=== PATIENT | female | born 1940 | race Caucasian/White ===

== ENCOUNTER 2023-11-05 15:15 | Outpatient (RCR) | payer OTHER, SELFPAY | END 2023-11-21 11:24 | disposition home or self-care (01) | PROVIDERS: PCP Internal Medicine; Visit Provider Internal Medicine | DX: R53.81 Other malaise (principal); R26.9 Unspecified abnormalities of gait and mobility; M25.551 Pain in right hip; R26.81 Unsteadiness on feet; R53.1 Weakness; Z51.89 Encounter for other specified aftercare | CPT/HCPCS: 97110; 97112; 97140; 97162 ==

== ENCOUNTER 2024-10-06 14:00 | Outpatient (RCR) | payer OTHER, SELFPAY ==
--- NOTE | 2024-06-23 11:25 | PT.OPEX ---
PT [facility] Outpatient Eval PT [facility] Outpatient Eval Start: 06/10/24 11:27 Freq: Status: Active Protocol: Document 06/23/24 07:10 MLS (Rec: 06/23/24 11:24 MLS [id number]) E-signed By Isi England DPT Physical Therapy Outpatient Evaluation Insurance Information Recert Due Date 09/20/24 Insurance Name Medicare B,zach Medical Diagnosis M25.579 pain in unspecified ankle and joints of unspecified foot G89.29 other chronic pain M54.9 dorsalgia Treating Diagnosis LBP Referring MD Ambar Rocha, SHAR Subjective Subjective Patient is a 84 year old female who presents to physical therapy with signs and symptoms consistent with low back pain. She states that she had a bad fall on February 04 and she hurt her left ankle and knee. She states that then she tripped walking on linoleum to the carpet. She states that then she had another fall while she was carrying her groceries. She states that her right foot caught in the grocery bag and she hurt her ankle again, left arm and low back. She did go the ER and they did xrays which came back negative. She states that she went to urgent care last week for her ankle again. She states that the physician called her back and said maybe she does have a fracture in her ankle. She does wear supportive wraps on both of her ankles. She states that she went in last to get a boot on and it really messed up her walking. She states that it really flared up her low back. She reports that she has pain in both of her ankles and her low back. She states that she is going to her orthopedist today regarding her ankles. She would like to focus on her low back and not do anything with her ankles until she gets a plan with her orthopedist. She states that she is having pain in her mid -back, right where her bra strap is located. She reports pain in her right low back and hip as well. She is having a hard time sleeping because she can't get comfortable. She states that she does not have any numbness or tingling in her back. Aggravating factors include: sleeping, walking, standing, exercising. Alleviating factors include: nothing. Significant past medical history includes hypertension (controlled), previous cancer (November), respiratory problems (mild COPD), arthritis. Patient would like to achieve less pain through physical therapy sessions. Pain Comments Today: 2/10 on a 0-10 pain scale with 10 = extreme pain At its worst: 8/10 At its best: 2/10 Current Work Status Retired Objective Other/Pertinent Objective Posture Assessment: Kyphotic posture, forward head, rounded shoulders LUMBAR ROM Flexion: to mid-bennett repeated flexion: no increase in pain Extension: mod decreased with pain repeated ext: pain Right Sidebend: mid thigh with pain Left Sidebend: mid thigh with pain Right Rotation: WNL with min pain Left Rotation: WNL LE MMT Hip flexion: R 4-/5 L 4-/5 Hip Extension: R 4-/5 L 4-/5 Hip abduction: R 3+/5 L3+/5 Knee extension: R 3/5 L 3-/5 Knee Flexion: R 4/5 L 4-/5 Dorsiflexion/heel walk: unable to perform secondary to ankles Plantarflexion/toe walk: unable to perform secondary to ankles JOINT MOBILITY/PALPATION Tenderness with palpation of bilateral ES, paraspinals, and right sided QL and multifidi SPECIAL TESTS -Quadrant test: positive on left -Single leg stance: unable to perform secondary to ankle pain -Slump test: negative B -Straight leg raise: pain on right -Crossed straight leg raise: pain on right SI/HIP -ESME: pain on right -FADIR: pain on right TX: Access Code: [email or web address] URL: [email or web address] Date: 06/23/2024 Prepared by: Isi England Exercises - Supine Lower Trunk Rotation - 1 x daily - 7 x weekly - 3 sets - 10 reps - Hooklying Single Knee to Chest Stretch - 1 x daily - 7 x weekly - 3 sets - 10 reps Functional Test Performed & Score 26/50 Modified Oswestry Low Back Pain Questionnaire Assessment Assessment/Impression Pt is a 84 year old female who presents with concerns of low back pain. Patient also has notable objective findings including limited ROM, tenderness to palpation, and decreased strength which are also likely contributing to the problem. Patient is a good candidate for skilled therapy to target deficits described above. Skilled PT intervention is necessary for use of therapeutic exercise manual therapy, neuromuscular re- education, gait training, and therapeutic activity. Functional impairments include difficulty with: standing, walking, exercising, sleeping, and ADLS. See appropriate sections of PT eval for complete list of goals and POC . D/C plan and criteria is for pt to achieve the goals as listed below or until max rehab potential is met. Pt was agreeable with plan of care and goals established. Primary Functional Limitations standing walking exercising ADLs sleeping Plan of Care Rehabilitation Potential Good Physical Therapy Goals Within 10-12 weeks: 1.Pt will demonstrate independence in performance of home exercise program with the use of video and/or handouts in order to optimize functional mobility and reduce risk for re-injury. 2.Pt will demonstrate consistent HEP compliance to ensure progress in reaching established goals during course of care. 3.Patient will be able to grocery shop for 20 minutes without pain. 4.Patient will report pain levels <2/10 with all activities in order to improve functional mobility at home, work and during functional leisure activities. 5.Patient is able to sleep without waking more than one time due to pain in a 6-8 hour time frame. 6.Patient will be able to walk up to one mile without pain. 7.Patient will be able to bend and lift household items from the floor to shoulder height to perform ADLs without pain. 8.Pt will be able to ascend/ descend 1 flight of stairs in order to perform ADLs pain free. 9.Pt will exhibit 5 pt improvement in Modified Oswestry Outcome measure to demonstrate functional improvement and progress towards goals Coordination/Communication With Referral Source Treatment Plan/Direct Interventions Joint Mobilization,Manual Therapy,Neuromuscular Re-ed, Therapeutic Activities, Therapeutic Exercises Patient Will Be Discharged From Therapy Independently Progressing Evaluation Billing Untimed Code Treatment Minutes 40 Complexity Low Certification Information Provider Signature Required Yes Provider Signature Shows Agreement With POC & Medical Necessity Physician NPI Number Write NPI# Here Physician Comment/Change : Physician Signature & Date Requested Please Sign/Date Here
--- NOTE | 2024-07-22 07:10 | PT.OPEX ---
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 Peraza Subjective Subjective Patient is a 84 year old female who presents to physical therapy with signs and symptoms consistent with left shoulder pain and bilateral knee pain. She states that her knee pain has caused her balance to get worse. She states that she had three falls between November and February. She reports that when she fell it hurt her shoulder and knees. She reports that she did have xrays on her shoulder which were negative. She reports that it hurts on the inside of both knees. No complaints of numbness or tingling into her arms and legs. Aggravating factors include: lifting, reaching, walking, squatting, standing. Alleviating factors include: nothing. Significant past medical history includes hypertension (controlled), previous cancer (November), respiratory problems (mild COPD), and arthritis. Patient would like to achieve less pain and better balance through physical therapy sessions. Pain Comments Today: 0/10 on a 0-10 pain scale with 10 = extreme pain At its worst: 5/10 At its best: 0/10 Current Work Status Retired Precautions Weight Bearing Status Full Weight Bearing Therapy Limitations/Systems Review Not Limited Objective Other/Pertinent Objective Posture Assessment: Kyphotic posture, forward head, rounded shoulders LE MMT Hip flexion: R 4-/5 L 4-/5 Hip Extension: R 4-/5 L 4-/5 Hip abduction: R 3+/5 L3+/5 Knee extension: R 3/5 L 3-/5 Knee Flexion: R 4/5 L 4-/5 heel walk: unable to perform secondary to ankle pain toe walk: unable to perform secondary to ankle pain SHOULDER AROM Flexion: R 140 L 135 Abduction: R 100 L 90 Internal Rotation: R 80 L 60 External Rotation: R 80 L 80 NECK/SHOULDER MMT: Shoulder flexion: R 4/5 L 4-/5 Shoulder abduction: R 4/5 L 4- /5 Shoulder External Rotation: R 4/5 L 4/5 Shoulder Internal Rotation: R 4/5 L 4/5 Elbow flexion: R 4/5 L 4/5 Elbow extension R 4/5 L 4/5 SPECIAL TEST -Spurlings Test: negative -Cervical distraction test: negative -Bakody Sign: negative Shoulder impingement -HawkinsvKennedy Test: negative -Neer Test: negative -Anahy Test: positive -Painful arc 60-120 scaption: painful arc Rotator cuff tendonitis -Speeds test: negative -Yergasons test: negative -Empty can(Supra): positive for pain -Lift off test (subscap): positive for pain Labral Tear/Instability -Biceps Load test: negative -Anterior Apprehension: negative -Obriens test: negative GAIT/FUNCTIONAL MOBILITY Single leg stance: no increase in pain Squat: pain in knees KNEE ROM Extension/Flexion: 0-130 B HIP ROM Flexion: 100 B Internal Rotation: 20 R. 23 L External Rotation: 30 B Abduction: 30 B SPECIAL TEST -Anterior drawer: negative B -Posterior Drawer: negative B -Valgus Test: negative B -Varus Test: negative B -Brooke test: negative B -hyper flexion test: negative B -Olsen Compression: negative B -Trochanteric Bursitis Test- Bursitis: negative B PALPATION Severe tenderness with palpation of medial joint lines in B knees TX: Access Code: [email or web address] URL: [email or web address] Date: 07/21/2024 Prepared by: Isi England Exercises - Tandem Stance - 2 x daily - 7 x weekly - 1 sets - 3 reps - 30 hold - Single Leg Stance - 2 x daily - 7 x weekly - 1 sets - 3 reps - 30 hold - Single Leg Stance on Foam Pad - 2 x daily - 7 x weekly - 1 sets - 3 reps - 30 hold - Tandem Walking - 1 x daily - 7 x weekly - 3 sets - 10 reps - Sideways Walking - 1 x daily - 7 x weekly - 3 sets - 10 reps - Heel Raises with Counter Support - 1 x daily - 7 x weekly - 3 sets - 10 reps - Mini Squat with Counter Support - 1 x daily - 7 x weekly - 3 sets - 10 reps Assessment Assessment/Impression Pt is a 84 year old female who presents with concerns of left shoulder pain, bilateral knee pain and a history of falls. Patient also has notable objective findings including limited ROM, tenderness to palpation, and decreased strength which are also likely contributing to the problem. Patient is a good candidate for skilled therapy to target deficits described above. Skilled PT intervention is necessary for use of therapeutic exercise manual therapy, neuromuscular re- education, gait training, and therapeutic activity. Functional impairments include difficulty with: standing, walking, exercising, ADLs. See appropriate sections of PT eval for complete list of goals and POC. D/C plan and criteria is for pt to achieve the goals as listed below or until max rehab potential is met. Pt was agreeable with plan of care and goals established. Primary Functional Limitations standing walking exercising ADLs Plan of Care Rehabilitation Potential Good Physical Therapy Goals Within 10-12 weeks: 1.Pt will demonstrate independence in performance of home exercise program with the use of video and/or handouts in order to optimize functional mobility and reduce risk for re-injury. 2.Pt will demonstrate consistent HEP compliance to ensure progress in reaching established goals during course of care. 3.Patient will report no falls . 4.Patient will report pain levels <2/10 with all activities in order to improve functional mobility at home, work and during functional leisure activities. 5.Patient will be able to move from sit to stand without pain. 6.Pt will be able to reach overhead into her cupboards without pain. 7.Pt will exhibit 5 pt improvement in LEFS and Quickdash measures to demonstrate functional improvement and progress towards goals Coordination/Communication With Referral Source Treatment Plan/Direct Interventions Joint Mobilization,Manual Therapy,Neuromuscular Re-ed, Therapeutic Activities, Therapeutic Exercises Patient Will Be Discharged From Therapy Independently Progressing Evaluation Billing Untimed Code Treatment Minutes 30 Complexity Low Certification Information Provider Signature Required Yes Provider Signature Shows Agreement With POC & Medical Necessity Physician NPI Number Write NPI# Here Physician Comment/Change : Physician Signature & Date Requested Please Sign/Date Here
== END 2024-11-09 08:39 | disposition home or self-care (01) ==
PROVIDERS: PCP Internal Medicine; Visit Provider Nurse Practitioner
DX: M25.562 Pain in left knee (principal); M25.561 Pain in right knee; M67.912 Unspecified disorder of synovium and tendon, left shoulder; M25.579 Pain in unspecified ankle and joints of unspecified foot; G89.29 Other chronic pain; M54.9 Dorsalgia, unspecified; Z51.89 Encounter for other specified aftercare
CPT/HCPCS: 97110; 97140; 97161

== ENCOUNTER 2024-10-27 10:59 | Emergency (ER) | payer OTHER, SELFPAY ==
--- OUTSIDE RECORDS SUMMARY | 2024-10-27 11:02 | XMS_ITS | Clinical Summary ---
Author Organization [employer] [facility] & [facility] Address [place], [place] [address] Care Team Providers Care Software Product Specialist Name Role Phone Ruth Collins MD Primary Care Provider Allergies Active Allergy Reactions Criticality Noted Date Comments Clindamycin Rash 07/18/2018 Lactose Other - Describe In Comment Field 12/19/2020 Levofloxacin Arthralgia 09/11/2017 Does not want to take any fluoroquinilones. Bursitis in shoulders that took 6 months to get rid of Penicillins *Unknown 09/11/2017 Has received amoxil and Augmentin without reactions. Wheat Other - Describe In Comment Field 12/19/2020 Medications medication order composer VIT A VIT D3 Co-Q 10 VIT B12 0 1 Active carboxymethylce -glycern-poly80 0.5-1-0.5 % ophthalmic solution INSTILL 1 DROP INTO BOTH EYES THREE TIMES A DAY NEEDED FOR DRY EYES. 1 Active diclofenac topical (VOLTAREN) 1 % gel Apply 2 g topically to affected area(s). 1 Active glucosamine-D3- hyaluronic acid 1,000 mg- 25 mcg-1.65 mg tab Take by mouth. 0 1 Active Active Problems No known active problems Social History Tobacco Use Types Packs/Day Years Used Date Smoking Tobacco: Former Smokeless Tobacco: Never Tobacco Cessation:Counseling Given: Yes Alcohol Use Standard Drinks/Week Comments Yes 0 (1 standard drink = 0.6 oz pur e alcohol) Social Connections Answer Date Recorded Frequency of Communication with Friends and Fami ly Not on file 09/23/2021 Financial Resource Strain Answer Date R ecorded Difficulty of Paying Living Expenses Not on file 09/23/2021 Difficulty of Paying Living Expenses Not on file 09/23/2021 Comments No Sex and Gender Information Value Date Recorded Sex Assigned at Not on file Legal Sex Female 3:27 PM [employer] Gender Identity Not on file Sexual Orientation Not on file Obstetrics History Last Filed Vital Signs Vital Sign Reading Time Taken Comments Blood Pressure 140/78 04/15/2021 4:47 PM CDT Pulse 68 04/15/2021 4:47 PM CDT Temperature 37.3 C (99.1 F) 04/15/2021 4:47 PM CDT Respiratory Rate 16 04/15/2021 4:47 PM CDT Oxygen Saturation 96% 04/15/2021 4:47 PM CDT Inhaled Oxygen Concentration - - Weight 52.3 kg (115 lb 6.4 oz) 04/15/2021 4:47 P M CDT Height - - Body Mass Index - - Plan of Treatment Health Maintenance Due Date Last Done Comments Tdap 1952 Depression screening for age 12+ 1953 BMI (ht and wt on same day) for age 18+ 1959 Tetanus booster 1961 Pneumococcal series for age 50+ (1 of 1 - PCV) 1991 Zoster (shingles) series for age 50+ (1 of 2) 1991 DEXA/DXA scan for age 65+ 2006 Medicare Wellness for age 65+ 2006 RSV vaccine for adults or pr egnancy (1 - 1-dose 75+ series) 2016 COVID-19 vaccine series ( season) 2024 08/14/2021, 01/18/2021, 12/21/2020 Influenza for age 65+ 05/24/2024 Care Teams Software Product Specialist Relationship Specialty Start Date End Date Ruth Collins MD PCP - General Preventive Medicine 07/12/21
--- OUTSIDE RECORDS SUMMARY | 2024-10-27 11:02 | XMS_ITS | Clinical Summary ---
Author Organization [facility] Address [address] [place] [address] Care Team Providers Care Installation And Repair Technician Name Role Phone Magy Dorantes P.A.-C. Primary Care Pro vider Source Comments Patient records contain information from all sites at [facility]. For routine questions regarding patient records, call [phone] during business hours, M-F 8:00 AM - 5:00 PM Central Time. Record requests for emergency care only can be directed to [phone] at any time.[facility] Allergies Active Allergy Reactions Criticality Noted Date Comments Clindamycin Rash Low 07/18/2018 Lactose GI intolerance Medium 12/19/2020 Levofloxacin Other (see comments) Medium 09/11/2017 patient does not want to take any Fluoroquinolones. Bursitis in shoulders that took 6 months to get rid of - Neomycin Rash Medium 11/21/2021 (eye ointment) - Penicillins GI intolerance Medium 09/11/2017 Wheat Other (see comments) Low 12/19/2020 sensitivity not an actual allergy - Medications TURMERIC ORAL Take 482 mg by mouth daily. Cyndie Tumeric [place] Extra Strength Proprietary Blend 482 mg capsule. Tumeric and Black Pepper extracts. 1 capsule per day. Active UNABLE TO FIND as needed. Advanced Proboitic Ultra Potency Formula 1 capsule oral daily Active selenium [address] tablet Take 2 tablets (400 mcg total) by mouth daily. 60 tablet 11 07/21/20 18 Active Additional Information Patient taking differently:400 mcg oralAs needed, Informant: Self, Reported on 10/15/2024 UNABLE TO FIND Nature's Way Joint Movement Extra Strength - Glucosamine 2000 mg, MSM 500 mg, chondroitin 1200 mg, VitD3 400 IU. Liquid formula daily. Active vitamin E 200 Unit capsule Take 200 Units by mouth 3 (three) times a day. Patient takes medication 2-3 times a week Active zinc gluconate 50 mg tablet Take 50 mg by mouth daily with breakfast. Active ascorbic yesf-zdzbawyc-w in (Emergen-C) 1,000 mg powder effervescent in packet Take 1 packet by mouth as needed. Active VITAMIN A ORAL Take 2 tablets by mouth daily. 25,000 IU capsules. Active UNABLE TO FIND as needed. Med Name: Ashwaganda 1300 mg one daily with 10 mg organic black pepper. Active phytonadione, vit K1, (phytonadione, vitamin K1,) 100 mcg tablet Take 100 mcg by mouth daily. Active lutein-zeaxanth in 25-5 mg capsule Take 1 capsule by mouth daily. Active UNABLE TO FIND Collagen Peptides one scoop a day Active aspirin 81 mg chewable tablet Chew 243 mg every 6 (six) hours as needed for pain. Active vitamin K2 40 mcg tablet Take by mouth. Acti ve cholecalciferol (Vitamin D3) 125 mcg (5,000 Unit) capsule Take 125 mcg by mouth as needed. Active coenzyme Q10 300 mg capsule Take 1 capsule by mouth as needed. Active cyanocobalamin, vitamin B-12, (VITAMIN B-12 ORAL) Take 5,000 mcg by mouth as needed. Active coenzyme Q10 300 mg capsule Take 300 mg by mouth daily. 025 Discontinued cyanocobalamin, vitamin B-12, 5,000 mcg capsule Take 2,500 mcg by mouth 2 (two) times a day. 025 Discontinued IODINE ORAL Take 2 drops by mouth once a week. Patient is taking two drops once a week 025 Discontinued cholecalciferol (VITAMIN D3) 125 mcg (5,000 Unit) capsule Take 5,000 Units by mouth 2 (two) times a day. 025 Discontinued Active Problems Patient Care Coordination No te Formatting of this note migh t be different from the original. Spouse: no Children: Fabio Mera, 4 grandkids Work: no Refused SUHAS Problem Noted Date Diagnosed Date Hypertension White [place] 07/15/2024 Infrarenal Abdominal Aortic Aneurysm Without Rup ture 06/25/2022 Overview (07/10/2022): CT shows Infrarenal abdominal aortic ectasia with diameter 2.7 cm. 06/2022 surveillance ultrasound shows Ectatic distal infrarenal aorta up to 2.5 cm. Repeat ultrasound in 3-5 years for surveillance. Blood pressure goal <130/80 mm Hg, patient reports home bps in the target range LDL cholesterol <70 mg/dL, patient defers statin Other Emphysema 12/07/2021 Overview (12/07/2021): Mild/moderate emphysema demonstrated on CT scan of chest from Jul 2021 Stroke Cerebrovascular Accident Personal History 07/21/2021 Overview (08/12/2021): Incidental finding of age indeterminate stroke involving right caudate head on 06/2021 CT neck. Follow up CT head showed features suggesting this was a subacute stroke when captured on 07/13, and now has evolved and contracted to a more chronic appearance. This occurred while on aspirin therapy. 07/2021 carotid ultrasound normal. 08/10/21 Focus on risk factor modification. She defers lifelong statin therapy. She is open to dietary and supplement options to lower cholesterol. Home SBPs are 110s-130s. Neurovascular e-consult RE: need to replace aspirin with clopidogrel, need for any further eval (is a DAX, MRI or holter monitor warranted?). Handout on alternative medicine options for lower cholesterol provided Recommend psyllium fiber for constipation and cholesterol Repeat lipids in 3-6 months Track home bps and bring bp cuff to next visit Nodule Thyroid Nontoxic 07/18/2018 Overview (07/09/2022): Thyroid ultrasound done on 11/04/2017, 06/2021, 06/2022 show 0.8cm stable right thyroid nodule with low risk features. No further imaging follow up needed. Assessment & Plan (06/25/2022 4:22 PM CDT): Repeat ultrasound for surveillance. Adults require Iodine 150mcg daily. Assessment & Plan (12/19/2020 11:54 AM CDT): Asymptomatic. Repeat Ultrasound for surveillance Hyperlipidemia 02/05/2018 Overview (03/13/2022): She defers lifelong statin therapy. She is open to dietary and supplement options to lower cholesterol. Lab Results Component Value Date LDLCALC 136 (H) 12/19/2020 Assessment & Plan (12/19/2020 11:54 AM CDT): LDL <130, no CAD. Continue lifestyle modification. Cancer Breast Personal History Overview (07/17/2024): She has history of breast cancer and left mastectomy in 1980, and she reports chemotherapy for five months. She is not interested in doing mammogram and has not had a mammogram for years. Assessment & Plan (12/19/2020 11:54 AM CDT): She would be open to a breast MRI if recommended. I will check with our [facility]. Insomnia Resolved Problems Problem Noted Date Diagnosed Date Resolved Date Parasitic Disease 06/25/2022 07/10/2022 Pain Generalized Abdominal 08/12/2021 1 Overview (08/12/2021): Treated at [facility] on 11/15/20 for diverticulitis. Current symptoms may relate to constipation or to irritable bowel syndrome, constipation type. No signs of symptoms at this time of recurrent diverticulitis. Constipation 01/05/2021 06/25/2022 Overview (08/12/2021): Fatigue 01/05/2021 06/12/2023 Overview (07/10/2022): Listlessness, depression, sleep disturbance (too much and too little sleep), forgetfulness, easy distractibility/difficulty sustaining attention, hair loss, dry skin, brittle nails, cold intolerance, joint aches and pains and constipation, hoarseness, fatigue, dry eyes. These symptoms improve with taking an Iodine supplement (Lugol's 5 drops in juice daily. No headaches. She reports blurry vision. No nipple discharge or secretion. Assessment & Plan (07/10/2022 4:26 PM CDT): She has symptoms of hypothyroidism which improved/resolve with iodine supplementation. High dose iodine can cause hyperthyroidism, and she may be experiencing an increase in thyroid levels after taking iodine. Previous TSH has been as low as 0.6 and as high as 1.7. No history of GRAVES. She has mildly elevated TTG antibodies. T3, T4 in normal range. --stop iodine supplementation --to avoid iodine deficiency, take multivitamin with Potassium Iodine 150mcg daily --replace Himalayan pink salt with sea salt to minimize lithium (reports presence of naturally occurring lithium in pink salt from certain regions) --repeat TSH/T4 when symptoms recur or in 3 months (iodine supplementation can affect thyroid production for months) --as requested, refer to endocrinology to help establish whether hypothyroidism is present/causing her symptoms. --morning cortisol with next labs to screen for adrenal insufficiency (less likely given high blood pressures in clinic) PreDiabetes 12/19/2020 06/12/2023 Pain Wrist Left 07/20/2018 12/19/2020 Dysfunction Diastolic 07/18/20182020 Hypertension Essential Primary 07/18/2018 12/19/2020 Primary Osteoarthritis Wrist Left 10/01/2017 12/19/2020 Pain Back Lumbar 10/01/2017 12/19/2020 Coronary Artery Disease With Stable Angina 09/12/2017 12/19/2020 Overview (07/18/2018): She had negative stress echo on 03/18/2018. Adjustment Disorder 09/12/2017 12/20/19 21 Presyncope 09/12/2017 12/19/2020 Dyspnea On Exertion 12/20/19 21 Rheumatic Fever Without Heart Involvement 12/19/2020 Encounters Date Type Department Care Team Description 10/16/2024 10:00 AM TRAINMASTER Comprehensive Visit Division of Endocrinology in [place], [place] [address] [place] [address] Magy Dorantes MPAS, P.A.-Enoc Hay M.D. Nodule Thyroid Nontoxic 10/15/2024 11:11 AM TRAINMASTER - 10/15/2024 11:59 PM TRAINMASTER Hospital Encounter Department of Laboratory Medicine in [address] [phone] Magy Dorantes MPAS, P.A.-C. Nodule Thyroid Nontoxic Discharge Disposition: Home or Self Care 10/15/2024 9:15 AM TRAINMASTER Clinical Communication Virtual Review in [address] [phone] Pre-visit Intake 09/11/2024 Clinical Communication Department of Community Internal Medicine in [address] [phone] Magy Dorantes MPAS, Tereza.A.-C. Referral 08/13/2024 1:25 PM TRAINMASTER Ancillary Procedure Department of Family Medicine 08/13/2024 1:00 PM TRAINMASTER Office Visit Department of Community Internal Medicine in [address] [phone] Magy Dorantes MPAS, Tereza.A.-C. Stroke Cerebrovascular Accident Personal History (Primary Dx); Hyperlipidemia; Nodule Thyroid Nontoxic; Rash 08/06/2024 10:38 AM TRAINMASTER - 08/06/2024 11:59 PM TRAINMASTER Hospital Encounter Department of Laboratory Medicine in [address] [phone] Magy Dorantes MPAS, P.A.-C. Hyperlipidemia; Maintenance Health Adult Discharge Disposition: Home or Self Care 08/06/2024 10:10 AM TRAINMASTER - 08/06/2024 10:37 AM TRAINMASTER Hospital Encounter Department of Radiology in [address] [phone] Magy Dorantes MPAS, P.A.-C. Lymphadenopathy Discharge Disposition: Home or Self Care from Last 3 Months Immunizations Immunization Administration Dates Next Due Influenza, Unspecified 08/27/2023(Deferr ed: Other),12/19/2020(Deferred: Other) PPSV23 06/12/2023(Deferred: Other),12/19/2020(Deferred: Other) RZV (SHINGRIX) 06/12/2023(Deferred: Patient Ref used) SARS-COV-2 (COVID-19) - MODERNA(Discontinued) 12/21/2020 Td (Adult), adsorbed 07/21/2021(Deferred: Other) Tdap 06/12/2023(Deferred: Patient Ref used) Zoster, Unspecified 07/21/2021(Deferred: Other) Family History Medical History Relation Name Comments Cataracts Brother Breast cancer Daughter Ovarian cancer Daughter Cancer Father Cataracts Father Heart disease Father Macular degeneration Father Blindness Father's Brother Retinal detachment Father's Brother Cataracts Mother Coronary artery disease Mother Glaucoma Mother Hypertension Mother Stroke Mother Cataracts Sister Hypertension Sister Strabismus Neg Hx Relation Name Status Comments Brother Daughter Father Father's Brother Mother Sister Social History Tobacco Use Types Packs/Day Years Used Date Smoking Tobacco: Former Cigarettes Smokeless Tobacco: Never Tobacco Cessation:Counseling Given: Not Answered Comments:quit in 1998 - Alcohol Use Standard Drinks/Week Comments Yes 0 (1 standard drink = 0.6 oz pur e alcohol) occassionally AUDIT-C Answer Date Recorded Frequency of Alcohol Consumption Monthly or less 05/12/2019 Average Number of Drinks Patient declined 2018 Frequency of Binge Drinking Patient declined Overall Financial Resource Strain (CARDIA) Answe r Date Recorded Difficulty of Paying Living Expenses Very hard 05/12/2019 PHQ-2 Answer Date Recorded PHQ-2 Score 0 03/20/2022 Nutrition Answer Date Recorded Nutrition: EVOO Fat Source 13 04/19 Nutrition: Servings of Fruits/Vegetables per Day Not on file 04/19/2020 Dental Answer Date Recorded Dental: Regular Dentist Unknown 11/14/19 Education Answer Date Recorded What is the highest level of school you have completed or the highest degree you have received? Some college, no degree 05/12/2019 Comments No Sex and Gender Information Value Date Recorded Sex Assigned at Not on file Legal Sex Female 1:42 PM TRAINMASTER Gender Identity Not on file Sexual Orientation Not on file Last Filed Vital Signs Vital Sign Reading Time Taken Comments Blood Pressure 135/80 10/16/2024 10:09 AM TRAINMASTER Patient stated took it at home last night 10/15/24 Pulse 75 08/13/2024 12:48 PM TRAINMASTER Temperature 35.8 C (96.4 F) 08/13/2024 12:48 PM TRAINMASTER Respiratory Rate 16 08/13/2024 12:4 8 PM TRAINMASTER Oxygen Saturation 90% 08/21/2023 3:4 5 PM TRAINMASTER Inhaled Oxygen Concentration - - Weight 50.5 kg (111 lb 5.3 oz) 10/16/2024 10:09 AM TRAINMASTER Height 156.1 cm (5' 1.46) 10/16/2024 1 0:09 AM TRAINMASTER Body Mass Index 20.72 10/16/2024 10:09 AM TRAINMASTER Plan of Treatment Health Maintenance Due Date Last Done Comments Visit: Medicare Annual Wellness 1940 DTaP,Tdap,and Td Vaccines (1 - Tdap) 1960 Pneumococcal vaccine (50+ years) (1 of 2 - PCV) 1960 Zoster Vaccines (1 of 2) 1991 RSV vaccine - (32-36 weeks) or 60+ years (1 - 1-dose 75+ series) 2016 COVID-19 Vaccine ( season) 2024 08/09/2023, 07/25/2022, 01/11/2022, Additional history exists Influenza Vaccine (#1) 2024 Depression Screening (Annual PHQ-2) 09/23/2024 Fall Risk Screen (Annual) 09/23/2024 Visit: Chronic Disease, age 18+ 07/15/2025 07/15/2024 Office Visit for Blood Pressure Check / Re-check 10/16/2025 10/16/2024 IPV Vaccines Aged Out No longer eligi ble based on patient's age to complete this topic Medical Devices Implanted Type Area Boat Patcher Plastic Device Identifier Shelf Expiration Date Model / Serial / Lot Staple-Left Shoulder-1980 Implanted:09/1980 (Quantity not on file) Misc Other Left: Shoulder Procedures Procedure Name Priority Date/Time Associated Diagnosis Comments THYROID-STIMULATI NG HORMONE-SENSITIVE (S-TSH) Routine 10/15/2024 11:23 AM TRAINMASTER Nodule Thyroid Nontoxic T4 (THYROXINE), FREE, S Routine 10/15/2024 11:23 AM TRAINMASTER Nodule Thyroid Nontoxic FAMILY MEDICINE IMAGE EXAM Routine 08/13/2024 1:25 PM TRAINMASTER THYROID FUNCTION CASCADE, S Routine 08/06/2024 10:46 AM TRAINMASTER Maintenance Health Adult VITAMIN B12 ASSAY, S Routine 08/06/2024 10:46 AM TRAINMASTER Maintenance Health Adult VITAMIN D, IMMUNOASSAY, TOTAL, S Routine 08/06/2024 10:46 AM TRAINMASTER Maintenance Health Adult GLUCOSE, FASTING, S/P Routine 08/06/2024 10:46 AM TRAINMASTER Maintenance Health Adult BASIC METABOLIC PANEL, S/P Routine 08/06/2024 10:46 AM TRAINMASTER Maintenance Health Adult LIPID PANEL, S Routine 08/06/2024 10:46 AM TRAINMASTER Hyperlipidemia US HEAD NECK SOFT TISSUE RAD - Routine (most inpatients and all outpatients) 08/06/2024 10:36 AM TRAINMASTER Lymphadenopathy from Last 3 Months Results * S-TSH (Thyroid-Stimulating Hormone - Sensitive) (10/15/2024 11:23 AM TRAINMASTER) TSH, Sensitive 1.4 0.3 - 4.2 mIU/L 10/15/2024 1:46 PM TRAINMASTER OWAT Blood (Blood, Venous) 10/15/2024 11:23 AM TRAINMASTER 10/15/2024 12:48 PM TRAINMASTER us Magy Dorantes MPAS, P.A.-C. LAB BLOOD ADD-ON Final Result [facility] [address] [place] [address], [place] OW[place] [facility] [place] [address] [place] [address] * T4 (Thyroxine), Free (10/15/2024 11:23 AM TRAINMASTER) T4 (Thyroxine), Free, P 1.3 0.9 - 1.7 ng/dL 10/15/2024 1:46 PM TRAINMASTER OWAT Blood (Blood, Venous) 10/15/2024 11:23 AM TRAINMASTER 10/15/2024 12:48 PM TRAINMASTER us Magy CONRAD, P.A.-C. LAB BLOOD ADD-ON Final Result [facility] [address] [place] [address], [place] [facility] [facility] [place] [address] [place] [address] * Arm-Family Medicine Image Exam (08/13/2024 1:25 PM TRAINMASTER) 08/13/2024 1:23 PM TRAINMASTER Narrative [facility] - 08/13/2024 1:25 PM TRAINMASTER This order has been created and auto-finalized to support the import of images acquired without order. The clinical documentation to support these images can be found on the encounter that produced images. us Provider Not In System IMG NON RAD IMAGING PROCE DURES Final Result [facility] NA * (ABNORMAL) Lipid Panel (08/06/2024 10:46 AM TRAINMASTER) Triglycerides 70 mg/dL 08/06/2024 1:21 PM TRAINMASTER OWAT Comment: ----REFERENCE VALUE---- Normal: <150 mg/dL Borderline High: 150-199 mg/dL High: 200-499 mg/dL Very High: > or =500 mg/dL Cholesterol, Total 223(H) mg/dL 2023 1:21 PM TRAINMASTER OWAT Comment: ----REFERENCE VALUE---- Desirable: < 200 mg/dL Borderline High: 200 - 239 mg/dL High: > or = 240 mg/dL Cholesterol, LDL, Calculated 117 mg/dL 08/06/2024 1:21 PM TRAINMASTER OWAT Comment: ----REFERENCE VALUE---- Desirable: <100 mg/dL Above Desirable: 100-129 mg/dL Borderline High: 130-159 mg/dL High: 160-189 mg/dL Very High: >=190 mg/dL ----ADDITIONAL INFORMATION---- LDL cholesterol calculated using the Gardner/NIH equation. Cholesterol, HDL 94 >=50 mg/dL 08/06/20 1:21 PM TRAINMASTER OWAT Cholesterol, Non-HDL, Calculated 129 mg/dL 08/06/2024 1:21 PM TRAINMASTER OWAT Comment: ----REFERENCE VALUE---- Desirable: <130 mg/dL Above Desirable: 130-159 mg/dL Borderline High: 160-189 mg/dL High: 190-219 mg/dL Very High: > or =220 mg/dL Fasting (8 HR or more) Yes 08/06/2024 10:46 AM TRAINMASTER OWAT Blood (Blood, Venous) 08/06/2024 10:46 AM TRAINMASTER 08/06/2024 12:47 PM TRAINMASTER Magy CONRAD, P.A.-C. LAB BLOOD ADD-ON Final Result Performing Organization Address City/[facility]/ZIP Co de Phone Number [facility] [address] [place] [address], [facility] [address] [facility] [place] [address] [place] [address] * Vitamin D, Immunoassay, Total, Serum (08/06/2024 10:46 AM TRAINMASTER) Vitamin D, Immunoassay, Total, S 29 20 - 80 ng/mL 08/06/2024 7:44 PM TRAINMASTER MKTO Comment: Optimum levels within the healthy population are 20-50, patients with bone disease may benefit from high levels within this range Blood (Blood, Venous) 08/06/2024 10:46 AM TRAINMASTER 08/06/2024 7:01 PM TRAINMASTER us Magy CONRAD, P.A.-C. LAB BLOOD ADD-ON Final Result Performing Organization Address City/[facility]/ZIP Co de Phone Number [facility] [address] [place] [address], [facility] MKTO [facility] [place] [address] [place] [address] * Thyroid Function [place] (08/06/2024 10:46 AM TRAINMASTER) TSH, Sensitive 1.3 0.3 - 4.2 mIU/L 08/06/2024 1:25 PM TRAINMASTER OWAT Blood (Blood, Venous) 08/06/2024 10:46 AM TRAINMASTER 08/06/2024 12:47 PM TRAINMASTER Magy CONRAD, P.A.-C. LAB BLOOD ADD-ON Final Result Performing Organization Address City/[facility]/ZIP Co de Phone Number [facility] [address], [place] [address], [facility] [facility] [place] [address] [place] [address] * Glucose, Fasting (08/06/2024 10:46 AM TRAINMASTER) Glucose, P 88 70 - 100 mg/dL 08/06/2024 1:39 PM TRAINMASTER OWAT Last Intake 12 hr 08/06/2024 12:45 PM TRAINMASTER OWAT Blood (Blood, Venous) 08/06/2024 10:46 AM TRAINMASTER 08/06/2024 12:45 PM TRAINMASTER Magy CONRAD, P.A.-C. LAB BLOOD NON ADD -ON Final Result [facility] [address] [place] [address], [facility] [facility] [place] [address] [place] [address] * Vitamin B12 Assay (08/06/2024 10:46 AM TRAINMASTER) Vitamin B12 Assay, S 991 232 - 1245 ng/L 08/06/2024 4:21 PM TRAINMASTER AUST Comment: Biotin has been identified by the vending technician as a potential interfering substance. Higher concentrations of biotin may be found in multivitamins, hair/nail supplements, and workout supplements. If the result does not match clinical observations, repeat testing after patient refrains from the use of supplements for at least 12 hours. Blood (Blood, Venous) 08/06/2024 10:46 AM TRAINMASTER 08/06/2024 3:29 PM TRAINMASTER Magy CONRAD, P.A.-C. LAB BLOOD ADD-ON Final Result [facility] [address] [place] [address], [facility] - [facility] [address] [place] [address] * Basic Metabolic Panel (08/06/2024 10:46 AM TRAINMASTER) Potassium, P 3.7 3.6 - 5.2 mmol/L 08/06/2024 1:21 PM TRAINMASTER OWAT Sodium, P 137 135 - 145 mmol/L 08/06/2024 1:21 PM TRAINMASTER OWAT Chloride, P 100 98 - 107 mmol/L 08/06/2024 1:21 PM TRAINMASTER OWAT Bicarbonate, P 28 22 - 29 mmol/L 08/06/2024 1:21 PM TRAINMASTER OWAT Anion Gap, P 9 7 - 15 08/06/2024 1:21 PM TRAINMASTER OWAT BUN (Blood Urea Nitrogen), P 17 6 - 21 mg/dL 08/06/2024 1:21 PM TRAINMASTER OWAT Creatinine 0.68 0.59 - 1.04 mg/dL 08/06/2024 1:21 PM TRAINMASTER OWAT Estimated GFR (eGFR) 86 >=60 mL/min/BSA 08/06/2024 1:21 PM TRAINMASTER OWAT Comment: Estimated GFR calculated using the 2020 CKD_EPI creatinine equation. Calcium, Total, P 8.9 8.8 - 10.2 mg/dL 08/06/2024 1:21 PM TRAINMASTER OWAT Glucose, P CANCELED mg/dL 08/06/2024 12:48 PM TRAINMASTER OWAT Comment: Duplicate test request. Result canceled by the ancillary. Blood (Blood, Venous) 08/06/2024 10:46 AM TRAINMASTER 08/06/2024 12:47 PM TRAINMASTER us Magy CONRAD P.A.-C. LAB BLOOD ADD-ON Final Result [facility] [address] [place] [address], [facility] [facility] [place] [address] [place] [address] * US Head Neck Soft Tissue (08/06/2024 10:36 AM TRAINMASTER) Anatomical Region Laterality Modality Head and Neck, Ultrasound RS T LOS, Ultrasound ARZ LOS, Ultrasound FLA LOS N/A Ultrasound Impressions 08/06/2024 10:49 AM TRAINMASTER 1. No definite sonographic correlate for the palpable abnormality on images provided for review. Narrative 08/06/2024 10:49 AM TRAINMASTER EXAM: US HEAD NECK SOFT TISSUE COMPARISON: Correlation is performed with ultrasound of the thyroid 07/09/2022; CT the neck soft tissues 07/12/2021. FINDINGS: Real-time grayscale and color Doppler sonographic imaging of the left neck was performed in the region of reported painful palpable abnormality. Care Coordination Manager images saved to PACS. Additional images the right neck obtained for purposes of anatomic comparison. --No focal sonographic abnormality demonstrated subjacent to the region of concern. No adenopathy. No fluid collection. The appearance of the region of concern within the left neck is symmetric to the contralateral right side. Procedure Note Chidi Ortiz M.D. - 08/06/2024 EXAM: US HEAD NECK SOFT TISSUE COMPARISON: Correlation is performed with ultrasound of the [id number]/09/2022; CT the neck soft tissues 07/12/2021. FINDINGS: Real-time grayscale and color Doppler sonographic imaging of theleft neck was performed in the region of reported painful palpableabnormality. Care Coordination Manager images saved to PACS. Additional images theright neck obtained for purposes of anatomic comparison. --No focal sonographic abnormality demonstrated subjacent to the region ofconcern. No adenopathy. No fluid collection. The appearance of the regionof concern within the left neck is symmetric to the contralateral rightside. IMPRESSION: 1. No definite sonographic correlate for the palpable abnormality onimages provided for review. us Magy CONRAD P.A.-C. IMG US PROCEDURES Final Result from Last 3 Months [address] [place] [address] [employer] Care Teams Installation And Repair Technician Relationship Specialty Start Date End Date Magy Dorantes MPAS, PClevelandA.Martin. [address] [place] [phone] PCP - General Internal Medicine 09/18/22
--- OUTSIDE RECORDS SUMMARY | 2024-10-27 11:02 | XMS_ITS | Encounter Summary ---
Author Organization [facility] Address [address] [place] [address] Care Team Providers Care Otter Trawler Boatswain Name Role Phone Magy Dorantes P.A.-C. Primary Care Pro vider Reason for Visit * Reason Onset Date Comments Pre-visit Intake 10/15/2024 * Appointment Request (Routine) - Authorized Specialty Diagnoses / Procedures Referred By Miguelito t Referred To Contact Endocrinology Referral ID Status Reason Start Date Expiration Date V isits Requested Visits Authorized [id number] Authorized 10/13/2024 01/13/2026 1 1 Encounter Details Date Type Department Care Team (Latest Contact Info) Description 10/15/2024 9:15 AM OUTGOING INSPECTOR Clinical Communication Virtual Review in [place], [place] [address] [place] [phone] Pre-visit Intake Social History Tobacco Use Types Packs/Day Years [...] Date Recorded Dental: Regular Dentist Unknown 11/14/19 21 Education Answer Date Recorded What is the highest level of school you have completed or the highest degree you have received? Some college, no degree 05/12/2019 Comments No Sex and Gender Information Value Date Recorded Sex Assigned at Not on file Legal Sex Female 1:42 PM OUTGOING INSPECTOR Gender Identity Not on file Sexual Orientation Not on file documented as of this encounter Plan of Treatment Not on file documented as of this encounter Visit Diagnoses Not on filedocumented in this encounter Additional Health Concerns Assessment Noted Time PHQ-9 Depression Total Score: 1 08/27/20 19 4:12 PM OUTGOING INSPECTOR documented as of this encounter Care Teams Otter Trawler Boatswain Relationship Specialty Start Date End Date Magy Dorantes MPAS, P.A.-C. [address] [place], [place] [address] [phone] PCP - General Internal Medicine 09/18/22 documented as of this encounter
--- OUTSIDE RECORDS SUMMARY | 2024-10-27 11:02 | XMS_ITS | Encounter Summary ---
Author Organization [facility] Address [address] [place] [address] Care Team Providers Care 1St Grade Teacher Name Role Phone Magy Dorantes, P.A.-C. Primary Care Pro vider Encounter Details Date Type Department Care Team (Latest Contact Info) Description 10/15/2024 11:11 AM COMMUNITY PLANNER - 10/15/2024 11:59 PM [facility] Hospital Encounter Department of Laboratory Medicine in [place], [place] [address] [place] [address] Magy Dorantes MPAS, P.A.-C. [address] [place] [phone] Nodule Thyroid Nontoxic Discharge Disposition: Home or Self Care Social History Tobacco Use Types Packs/Day Years Used Date Smoking Tobacco: Former Cigarettes Smokeless Tobacco: Never Comments:quit in 1998 - Alcohol Use Standard [...] on file Legal Sex Female 1:42 PM COMMUNITY PLANNER Gender Identity Not on file Sexual Orientation Not on file documented as of this encounter Medications at Time of Discharge ascorbic [id number]-[id number] (Emergen-C) 1,000 mg powder effervescent in packet Take 1 packet by mouth as needed. aspirin 81 mg chewable tablet Chew 243 mg every 6 (six) hours as needed for pain. cholecalciferol (Vitamin D3) 125 mcg (5,000 Unit) capsule Take 125 mcg by mouth as needed. coenzyme Q10 300 mg capsule Take 1 capsule by mouth as needed. cyanocobalamin, vitamin B-12, (VITAMIN B-12 ORAL) Take 5,000 mcg by mouth as needed. lutein-zeaxanthin 25-5 mg capsule Take 1 capsule by mouth daily. phytonadione, vit K1, (phytonadione, vitamin K1,) 100 mcg tablet Take 100 mcg by mouth daily. TURMERIC ORAL Take 482 mg by mouth daily. Cyndie Tumeric [place] Extra Strength Proprietary Blend 482 mg capsule. Tumeric and Black Pepper extracts. 1 capsule per day. UNABLE TO FIND as needed. Advanced Proboitic Ultra Potency Formula 1 capsule oral daily UNABLE TO FIND Nature's Way Joint Movement Extra Strength - Glucosamine 2000 mg, MSM 500 mg, chondroitin 1200 mg, VitD3 400 IU. Liquid formula daily. UNABLE TO FIND as needed. Med Name: Ashwaganda 1300 mg one daily with 10 mg organic black pepper. UNABLE TO FIND Collagen Peptides one scoop a day VITAMIN A ORAL Take 2 tablets by mouth daily. 25,000 IU capsules. vitamin E 200 Unit capsule Take 200 Units by mouth 3 (three) times a day. Patient takes medication 2-3 times a week vitamin K2 40 mcg tablet Take by mouth. zinc gluconate 50 mg tablet Take 50 mg by mouth daily with breakfast. documented as of this encounter Plan of Treatment Not on file documented as of this encounter Procedures Procedure Name Priority Date/Time Associated Diagnosis Comments THYROID-STIMULATING HORMONE-SENSITIVE (S-TSH) Routine 10/15/2024 11:23 AM COMMUNITY PLANNER Nodule Thyroid Nontoxic T4 (THYROXINE), FREE, S Routine 10/15/2024 11:23 AM COMMUNITY PLANNER Nodule Thyroid Nontoxic documented in this encounter Results * S-TSH (Thyroid-Stimulating Hormone - Sensitive) (10/15/2024 11:23 AM COMMUNITY PLANNER) TSH, Sensitive 1.4 0.3 - 4.2 mIU/L 10/15/2024 1:46 PM COMMUNITY PLANNER OWAT Blood (Blood, Venous) 10/15/2024 11:23 AM COMMUNITY PLANNER 10/15/2024 12:48 PM COMMUNITY PLANNER Magy CONRAD, P.A.-C. LAB BLOOD ADD-ON Final Result Performing Organization Address [facility] Co de Phone Number [facility] [address] [place] [phone], [facility] in [place] [address] [place] [phone] * T4 (Thyroxine), Free (10/15/2024 11:23 AM COMMUNITY PLANNER) T4 (Thyroxine), Free, P 1.3 0.9 - 1.7 ng/dL 10/15/2024 1:46 PM COMMUNITY PLANNER OWAT Blood (Blood, Venous) 10/15/2024 11:23 AM COMMUNITY PLANNER 10/15/2024 12:48 PM COMMUNITY PLANNER us Magy CONRAD, P.A.-C. LAB BLOOD ADD-ON Final Result Performing Organization Address [facility]/ZIP Co de Phone Number [facility] [address] [place] [phone], [facility] in [place] [address] [place] [phone] documented in this encounter Visit Diagnoses Diagnosis Nodule Thyroid Nontoxic documented in this encounter Additional Health Concerns Assessment Noted Time PHQ-9 Depression Total Score: 1 08/27/20 19 4:12 PM COMMUNITY PLANNER documented as of this encounter Care Teams 1St Grade Teacher Relationship Specialty Start Date End Date Magy Dorantes MPAS, P.A.-C. [address] [place] [address] [place] [phone] PCP - General Internal Medicine 09/18/22 documented as of this encounter
--- OUTSIDE RECORDS SUMMARY | 2024-10-27 11:02 | XMS_ITS | Encounter Summary ---
Author Organization [facility] Address [address] [place] [address] Care Team Providers Care Bun Panner Name Role Phone Magy Dorantes P.AC[place] Primary Care Pro vider Reason for Referral * Outpatient (Routine) - Authorized Specialty Diagnoses / Procedures Referred By Miguelito dominguez Referred To Contact Dermatology Diagnoses Rash Magy Dorantes MPAS, P.A.-CC[place] [address] [place] [address] Phone: tel: fax: [facility] Referral ID Status Reason Start Date Expiration Date Visits Requested Visits Authorized [id number] Authorized Specialty Services Required 4 03/13/2026 1 1 CLUB FACER Reason for Visit * Reason Onset Date Comments Referral 09/11/2024 Encounter Details Date Type Department Care Team ([facility] st Contact Info) Description 09/11/2024 Clinical Communication Department of Community Internal Medicine in [place], [place] [address] [place] [phone] Magy Dorantes MPAS, P.A.-CC[place] [address] [place] [phone] Referral Social History Tobacco Use Types Packs/Day Years Used Date Smoking Tobacco: Former Smokeless Tobacco: Never Comments:Patient estimates 3 5 pack year smoking historyt Alcohol Use Standard Drinks/Week Comments Yes 0 [...] on file Legal Sex Female 1:42 PM GOLF CLUB FACER Gender Identity Not on file Sexual Orientation Not on file documented as of this encounter Plan of Treatment Scheduled Referrals Name Type Priority Associated Diagnoses Order Schedule Dermatology - General consult (clinic) Outpatient Referral Routine Rash Expected: 09/11/2024, Expires: 12/10/2025 documented as of this encounter Visit Diagnoses Diagnosis Rash- Primary documented in this encounter Additional Health Concerns Assessment Noted Time PHQ-9 Depression Total Score: 1 08/27/20 19 4:12 PM GOLF CLUB FACER documented as of this encounter Care Teams Bun Panner Relationship Specialty Start Date End Date Magy Dorantes MPAS, P.A.-C. [address] [place] [phone] PCP - General Internal Medicine 09/18/22 documented as of this encounter
--- OUTSIDE RECORDS SUMMARY | 2024-10-27 11:02 | XMS_ITS | Encounter Summary ---
Author Organization [facility] Address [address] [place] [address] Care Team Providers Care Rod Hanger Name Role Phone Magy Dorantes P.A.-CC[place] Primary Care Pro vider Reason for Visit * Outpatient (Routine) - Closed Specialty Diagnoses / Procedures Referred By Miguelito t Referred To Contact Endocrinology Diagnoses Nodule Thyroid Nontoxic Magy Dorantes MPAS P.A.-CC[place] [address] [place] [address] Phone: tel: fax: [facility] Referral ID Status Reason Start Date Expiration Date Visits Re quested Visits Authorized [id number] Closed 08/13/2024 02/12/2026 1 1 Encounter Details Date Type Department Care Team (Latest Contact Info) Description 10/16/2024 10:00 AM FLOOR LAYER APPRENTICE Comprehensive Visit Division of Endocrinology in [place], [place] [address] [place] [phone] Magy Dorantes MPAS, P.A.-C. [address] [place] [phone] Enoc Fisher M.D. [address] [place] [phone] Nodule Thyroid Nontoxic Social History Tobacco Use Types Packs/Day Years [...] on file Legal Sex Female 1:42 PM FLOOR LAYER APPRENTICE Gender Identity Not on file Sexual Orientation Not on file documented as of this encounter Last Filed Vital Signs Vital Sign Reading Time Taken Comments Blood Pressure 135/80 10/16/2024 10:09 AM FLOOR LAYER APPRENTICE Patient stated took it at home last night 10/15/24 Pulse - - Temperature - - Respiratory Rate - - Oxygen Saturation - - Inhaled Oxygen Concentration - - Weight 50.5 kg (111 lb 5.3 oz) 10/16/2024 10:09 AM FLOOR LAYER APPRENTICE Height 156.1 cm (5' 1.46) 10/16/2024 1 0:09 AM FLOOR LAYER APPRENTICE Body Mass Index 20.72 10/16/2024 10:09 AM FLOOR LAYER APPRENTICE documented in this encounter Consult Notes * Enoc Fisher M.D. - 10/16/2024 10:00 AM CST SUBJECTIVE REFERRAL SOURCE Magy Dorantes MPAS, P.A.-C. CHIEF COMPLAINT / REASON FOR VISIT No chief complaint on file. HISTORY OF PRESENT ILLNESS Varsha Morley is a 84 y.o. female who presents for evaluation of thyroid nodule. Medical comorbidities include hyperlipidemia, stroke, white coat hypertension. Patient was previously evaluated for thyroid concerns by Dr. Blackman in 07/19/2022. She says she wason levothyroxine for 2-3 years in her late 30s. She says she has been reading a couple books about the thyroid (one of them titled The Thyroid Solution) and insists that something is wrong with her thyroid. She endorses a 3-year history of fatigue, dry skin, losing hair, fatigue, and occasional constipation. She does say that she does not drink enough fluids throughout the day. She denies weight gain or cold intolerance. Her most recent (10/15/2024) T4 normal at 1.3 and TSH normal at 1.4. Her documented TSH has been normal dating back to 2018. Prior T4 and T3 have also been normal when check in 2021. US thyroid 07/09/2022: no significant change in 0.8 cm low suspicion right thyroid nodule. US thyroid 12/2020: stable few thyroid lobe nodules with low suspicion Family history: daughter with Graves disease OBJECTIVE VITAL SIGNS There were no vitals taken for this visit. PHYSICAL EXAMINATION GENERAL: Awake, Alert. No acute distress. HEENT: Normocephalic, atraumatic. THYROID: No palpable nodules. No goiter. HEART: Regular Rate. LUNGS: Unlabored breathing pattern EXTREMITIES: No swelling or erythema. SKIN: Exposed areas of skin are clean, dry, and intact with no evidence of cellulitis, pressure ulcers, or necrosis. MENTAL STATUS: Grossly oriented with appropriate mood and affect. PSYCH: Normal mood and affect GAIT: Normal sitting and standing balance. Asy-al-[id number] is independent. Normal gait. ASSESSMENT / PLAN #1 Nodule Thyroid Nontoxic - Endocrinology - Thyroid disorders consult (clinic) Varsha Morley is a 84 y.o. female who presents for evaluation of a thyroid nodule. She has had an ultrasound of the thyroid on 12/2020 which showed stable few thyroid lobe nodules with a low suspicion. She had a repeat ultrasound of the thyroid on 07/09/2022, which did not reveal any significant change. She does not require repeat ultrasound of the thyroid given stability and lowsuspicions. Her most recent (10/15/2024) T4 normal at 1.3 and TSH normal at 1.4. Her documented TSH has been normal dating back to 2018. Prior T4 and T3 have also been normal when check in 2021. As such, her thyroid function is normal and is not contributing to her symptoms, including her fatigue. We have recommended that she visit her primary care provider to undergo further workup for her fatigue. Although it is not our recommendation for the patient to take Lugol's solution given her normal thyroid function, she says that it make her symptoms feel better. If patient takes Lugol's solution, she was recommended to take the same quantity and have her PCP check TSH two times a year. If she changes the quantity with which she takes it, then she would require more frequent checks to ensure stability. Counseling was provided [id number]. I personally spent over half of a total of 60 minutes in counseling and coordination of care. All questions were answered to the best of my ability. The patient should follow-up with their primary care provider as soon as possible to further workupher fatigue Cosigned by Ashok Acevedo M.D., M.S. at 10/19/2024 3:22 PM FLOOR LAYER APPRENTICE R LAYER APPRENTICE R LAYER APPRENTICE Associated attestation - Ashok Acevedo M.D., M.S. - 10/19/2024 3:22 PM FLOOR LAYER APPRENTICE This is a supervisory note for Dr. Fisher , Resident Physician. I reviewed with Dr. Fisher the medical history and his findings on physical examination. I discussed with him the patient???s diagnosis and I concur with the recommendations as outlined in his note. In brief, Ms. Morley has normal thyroid function. She has a history of thyroid nodules that are small and low suspicion and do not require follow-up. She is very health conscious in terms of her intake and exposure. She believes that Lugol solution is providing some stability to some of her nonspecific symptoms. If she wishes to continue with taking Lugol solution, I recommended not adjusting doses frequently,and having thyroid function testing monitored to ensure they are not affecting her thyroid function. This can be done through her primary care team, about twice a year. documented in this encounter Plan of Treatment Not on file documented as of this encounter Visit Diagnoses Diagnosis Nodule Thyroid Nontoxic documented in this encounter Additional Health Concerns Assessment Noted Time PHQ-9 Depression Total Score: 1 08/27/20 19 4:12 PM FLOOR LAYER APPRENTICE documented as of this encounter Care Teams Rod Hanger Relationship Specialty Start Date End Date Magy Dorantes MPAS, P.A.-C. [address] [facility] [place] [phone] PCP - General Internal Medicine 09/18/22 documented as of this encounter
[2024-10-27 11:03] VITALS: BP 150/92; PULSE 86; RESP 16; TEMP 36.6; O2SAT 96
--- NOTE | 2024-10-27 11:08 | ED.GENADULT ---
HPI - General Adult General Chief complaint: Arrhythmia/Palpitations Stated complaint: AFib - Dehydration Time Seen by Provider: 10/27/24 11:07 History of Present Illness HPI narrative: Patient reports palpitations that started 2000, episodes of chest pain lasting a few seconds that radiated into her left arm. Didn't sleep well last two nights. Patient also believes she is dehydrated as the humidity in my apartment is only 25%. Patient notes she is eating/ drinking normally. Patient notes she has an upcoming appt with endocrinology/ [place] for thyroid issues. 84-year-old woman presenting to the emergency department with concern of rapid heart rate of ?atrial fibrillation? that lasted about 10 seconds at precisely 8:18 p.m. yesterday. She was making supper. She does not have a known history of atrial fibrillation or dysrhythmia as far as I can tell. Then had what she describes as angina starting in her mid chest radiating up into the left shoulder lasting also few seconds. This started around the time of supper and was exacerbated any time she tried to eat something. She is worried that she is now dehydrated. A particular problem is that the humidity her apartment is only 25%. That is clearly not sustainable. She does not endorse any pulmonary disease. Has paperwork delineating numerous blood pressure and pulse checks throughout the night some of which corresponded with some brief chest pains. She did spend time pressing on her abdomen trying to relocate which she would presume is a hiatal hernia. Seemed to help with discomfort. She also points out that has some periumbilical hernia to that might be a problem. Currently she does say she feels horrible but denies any abdominal pain or chest pain. She does say she is likely constipated. This might be making hernia worse. Related Data Home Medications ?Medication ?Instructions ?Recorded ?Confirmed aspirin 81 mg capsule 81 mg PO DAILY 10/27/24 10/27/24 Allergies Allergy/AdvReac Type Severity Reaction Status Date / Time clindamycin Allergy Severe Verified 10/27/24 11:03 oxycodone Allergy Unknown Verified 10/27/24 11:03 Penicillins Allergy Unknown Verified 10/27/24 11:03 Review of Systems Status of ROS: Reports: 6 or more systems reviewed and unremarkable except as noted in History and below [facility] Medical History Rheumatoid arthritis ?M06.9 - Rheumatoid arthritis, unspecified (ICD-10) Surgical History H/O dilation and curettage ?Z98.890 - Other specified postprocedural states (ICD-10) H/O mastectomy ?Z90.10 - Acquired absence of unspecified breast and nipple (ICD-10) Social History Non-prescribed substance use: denies use Exam Narrative: Exam Narrative: Pleasant. NAD. Calm. Breathing easily. Lungs are clear. Pain is not reproducible over palpation of the chest. Status post mastectomy. Moving all extremities without difficulty. She is well-perfused peripherally. There is no lower extremity edema. Abdomen is soft and nontender. There is a small periumbilical swelling with increased intra-abdominal pressure that could be hernia. There are no inflammatory changes nor she particularly tender to suggest any entrapment/incarceration. Heart is in regular rate and rhythm without murmur rub or gallop. Const: Vital Signs, click to edit/add: Vital Signs - 24 hr 10/27/24 11:03 10/27/24 14:11 Temperature 97.8 F Pulse Rate [Pulse Oximeter] 86 86 Respiratory Rate 16 18 Blood Pressure [Ri ght Upper Arm] 150/92 H Pulse Oximetry 96 97 Oxygen Delivery Me thod Room Air Room Air Documenting provider has reviewed patient's vital signs: yes Course Vital Signs Vital signs: Initial Vital Signs Temperature 97.8 F 10/27/24 11:03 Temperature Source Temporal Artery Scan 10/27/24 11:03 Pulse Rate 86 10/27/24 11:03 Pulse Rhythm Regular 10/27/24 11:03 Respiratory Rate 16 10/27/24 11:03 Blood Pressure 150/92 H 10/27/24 11:03 Blood Pressure Mean 111 H 10/27/24 11:03 Blood Pressure Position Sitting 10/27/24 11:03 Pulse Oximetry 96 10/27/24 11:03 Oxygen Delivery Method Room Air 10/27/24 11:03 Vital Signs Temperature 97.8 F 10/27/24 11:03 Pulse Rate 86 10/27/24 11:03 Respiratory Rate 16 10/27/24 11:03 Blood Pressure 150/92 H 10/27/24 11:03 Pulse Oximetry 96 10/27/24 11:03 Oxygen Delivery Method Room Air 10/27/24 11:03 Temperature 97.8 F 10/27/24 11:03 Pulse Rate 86 10/27/24 14:11 Respiratory Rate 18 10/27/24 14:11 Blood Pressure 150/92 H 10/27/24 11:03 Pulse Oximetry 97 10/27/24 14:11 Oxygen Delivery Method Room Air 10/27/24 14:11 Medical Decision Making MDM Narrative Medical decision making narrative: Has a number of concerns. Unclear if these are related. Will check for evidence of biliary disease, recent ischemic cardiovascular event, confirmation of hiatal hernia, constipation. Labs are unremarkable. And urinalysis noted though with 2+ protein. X-rays of chest and abdomen independently reviewed by me shows some colonic gaseous distension, possibly excessive stool in the colon. Chest otherwise unremarkable See radiology over-reads below AP view of the abdomen. Comparison: None. Findings: Mild gaseous dilation of the colon measuring up to 6.4 centimeter. Moderate stool burden is seen primarily in the ascending and descending colon. Nonobstructive bowel gas pattern. No large pneumoperitoneum. Visualized lung bases are clear. Moderate degenerative changes of the visualized spine. Impression: Mild gaseous dilation of the colon measuring up to 6.4 centimeter may represent mild colonic ileus. Moderate stool burden is seen in the ascending and descending colon. No evidence of bowel obstruction. Indication: Transient chest pain Technique: AP view of the chest. Comparison: None. Findings: Low lung volumes. Normal cardiomediastinal silhouette. No focal consolidation, pleural effusions, or visualized pneumothorax. Left axillary surgical clips. Impression: No acute cardiopulmonary disease. I do think colonic gas, intestinal gas could be explanation for some of the complaints that she is having. Generally unusual correlations/complaints otherwise. Would consider monitoring for cardiac tachyarrhythmia but Varsha says she does not want to do this, does not want things stuck on her chest again. Monitored during time in the emergency department without event. I would offer reassurance at this point. See patient discharge plan for further discussion It appears that abdominal gas might be contributing to your pain your belly. I would take liquid antacid/anti-gas for this as needed. You also seemed to have some degree of constipation which might also be contributing to the gas you are experiencing. For this would consider MiraLax equivalent dissolved head 8 oz of liquid 2-3 times daily adjusting to stool consistency over the next week or 2. Longer-term you might benefit from Benefiber. If you are experiencing quite hard stools, would consider placing an enema in repeating next day if no good result. Further bowel cleanout could be accomplished with drinking a bottle of magnesium citrate and repeating the next day if necessary. I believe you also mentioned that you are going to return to your diverticulitis diet. As far as this rapid heart rate, there appears to have been no recurrence here nor have you had evidence of injury to your heart. As discussed you might benefit from rhythm monitoring but you appear hesitant to wear a monitoring patch. Would encourage you to follow up shortly with your primary provider to discuss all this again. Return to your dental clinic for further opinion on the changes you are experiencing in your mouth. Medical Records Medical records reviewed: Yes I reviewed the patient's medical records Lab Data Lab results reviewed: Yes I reviewed the patient's lab results Labs: Lab Results 10/27/24 10/27/24 Range/Units 11:56 12:07 WBC 10.89 (4.50-11.00) K/uL RBC 4.59 (4.00-5.20) m/uL Hgb 13.8 (12.0-16.0) gm/dL Hct 41.4 (33.0-51.0) % MCV 90 (80-100) fL MCH 30 (26-34) pg MCHC 33 (32-36) gm/dL RDW Coeff of Amara 12.4 (11.5-15.5) % Plt Count 251 (140-440) K/uL Neut % (Auto) 77.8 H (42.0-72.0) % Lymph % (Auto) 14.6 L (20-44) % Grady % (Auto) 6.2 (0.0-11.0) % Eos % (Auto) 0.7 (0.0-7.0) % Baso % (Auto) 0.6 (0.0-3.0) % Neut # (Auto) 8.50 H (1.7-7.0) K/uL Lymph # (Auto) 1.60 (0.90-2.90) K/uL Grady # (Auto) 0.70 (0.00-0.90) K/UL Eos # (Auto) 0.08 (0.00-0.50) K/uL Baso # (Auto) 0.06 (0.00-0.30) K/uL Abs Immat Gran (auto) 0.01 (0.00-0.30) K/uL Imm/Tot Granulo (auto) 0.1 % Sodium 133 L (135-149) mmol/L Potassium 3.4 L (3.6-5.1) mmol/L Chloride 98 (96-114) mmol/L Carbon Dioxide 28 (20-32) mmol/L Anion Gap 7 (7-15) mEq/L BUN 10 (7-30) mg/dL Creatinine 0.6 (0.5-1.5) mg/dL Estimated GFR 89 ml/min Glucose 100 (60-115) mg/dL Calcium 8.9 (8.4-10.6) mg/dL Troponin I < 0.01 L (0.01-0.04) ng/mL NT-Pro-B Natriuret Pep 193 pg/mL Urine Color Yellow (Yellow) Urine Appearance Clear (Clear) Urine pH 7.5 (5.0-8.5) Ur Specific [place] 1.015 (1.000-1.030) Urine Protein 2+ A (Negative) Urine Glucose (UA) Negative (Negative) Urine Ketones Trace A (Negative) Urine Blood Trace-intact A (Negative) Urine Nitrite Negative (Negative) Urine Bilirubin 1+ A (Negative) Urine Urobilinogen 0.2 (0.2-1.0) Ur Leukocyte Esterase Negative (Negative) Urine RBC 0-2 (0-2) Urine WBC 0-2 (0-5) Ur Squamous Epith Cells None (None-Few) Urine Bacteria None (None) POC Troponin I 0.01 (0.01-0.04) ng/ml ECG Data Attestation: I personally reviewed and interpreted this ECG as follows: (Normal sinus. Somewhat prominent T-wave. Rate of 67) Discharge Plan Discharge Clinical Impression: Abdominal gas pain, Constipation, Atypical chest pain Patient Disposition: Home, Self-Care Condition: Stable Additional Instructions: It appears that abdominal gas might be contributing to your pain your belly. I would take liquid antacid/anti-gas for this as needed. You also seemed to have some degree of constipation which might also be contributing to the gas you are experiencing. For this would consider MiraLax equivalent dissolved head 8 oz of liquid 2-3 times daily adjusting to stool consistency over the next week or 2. Longer-term you might benefit from Benefiber. If you are experiencing quite hard stools, would consider placing an enema in repeating next day if no good result. Further bowel cleanout could be accomplished with drinking a bottle of magnesium citrate and repeating the next day if necessary. I believe you also mentioned that you are going to return to your diverticulitis diet. As far as this rapid heart rate, there appears to have been no recurrence here nor have you had evidence of injury to your heart. As discussed you might benefit from rhythm monitoring but you appear hesitant to wear a monitoring patch. Would encourage you to follow up shortly with your primary provider to discuss all this again. Return to your dental clinic for further opinion on the changes you are experiencing in your mouth. Prescriptions: No Action aspirin 81 mg capsule 81 mg PO DAILY Follow Up/Referrals: Magy Dorantes PA-C [Primary Care Provider] - Stand Alone Forms: [facility] Info Instructions
--- NOTE | 2024-10-27 11:31 | CRLHL7_ITS ---
For Patients: As a result of the Century Cures Act, medical imaging exams and procedure reports are released immediately into your electronic medical record. You may view this report before your referring provider. If you have questions, please contact your health care provider. Indication: Transient chest pain Technique: AP view of the chest. Comparison: None. Findings: Low lung volumes. Normal cardiomediastinal silhouette. No focal consolidation, pleural effusions, or visualized pneumothorax. Left axillary surgical clips. Impression: No acute cardiopulmonary disease. Dictated by Memo Zelaya MD @ 10/27/2024 12:15:58 PM (Electronically Signed)
--- NOTE | 2024-10-27 11:31 | CRLHL7_ITS ---
For Patients: As a result of the Century Cures Act, medical imaging exams and procedure reports are released immediately into your electronic medical record. You may view this report before your referring provider. If you have questions, please contact your health care provider. Indication: constipation Technique: AP view of the abdomen. Comparison: None. Findings: Mild gaseous dilation of the colon measuring up to 6.4 centimeter. Moderate stool burden is seen primarily in the ascending and descending colon. Nonobstructive bowel gas pattern. No large pneumoperitoneum. Visualized lung bases are clear. Moderate degenerative changes of the visualized spine. Impression: Mild gaseous dilation of the colon measuring up to 6.4 centimeter may represent mild colonic ileus. Moderate stool burden is seen in the ascending and descending colon. No evidence of bowel obstruction. Dictated by Memo Zelaya MD @ 10/27/2024 12:17:28 PM (Electronically Signed)
--- OUTSIDE RECORDS SUMMARY | 2024-10-27 11:35 | XMS_ITS | Encounter Summary ---
Author Organization [facility] Address [address] [place] [address] Care Team Providers Care Putty Mixer Name Role Phone Magy Dorantes P.A.-[facility] Pro vider Reason for Visit * Outpatient (Routine) - Closed Specialty Diagnoses / Procedures Referred By Miguelito t Referred To Contact Endocrinology Diagnoses Nodule Thyroid Nontoxic Magy Dorantes MPAS P.A.-[facility] [address] [place] [address] Phone: tel: fax: [facility] Referral ID Status Reason Start Date Expiration Date Visits Re quested Visits Authorized [id number] Closed 08/13/2024 02/12/2026 1 1 Encounter Details Date Type Department Care Team (Latest Contact Info) Description 10/16/2024 10:00 AM HOSPITAL CLERK Comprehensive Visit Division of Endocrinology in [place], [place] [address] [place] [phone] Magy Dorantes MPAS, P.A.-C. [address] [place] [address] Enoc Fisher M.D. [address] [place] [phone] Nodule Thyroid Nontoxic Social History Tobacco [...] on file Legal Sex Female 1:42 PM HOSPITAL CLERK Gender Identity Not on file Sexual Orientation Not on file documented as of this encounter Last Filed Vital Signs Vital Sign Reading Time Taken Comments Blood Pressure 135/80 10/16/2024 10:09 AM HOSPITAL CLERK Patient stated took it at home last night 10/15/24 Pulse - - Temperature - - Respiratory Rate - - Oxygen Saturation - - Inhaled Oxygen Concentration - - Weight 50.5 kg (111 lb 5.3 oz) 10/16/2024 10:09 AM HOSPITAL CLERK Height 156.1 cm (5' 1.46) 10/16/2024 1 0:09 AM HOSPITAL CLERK Body Mass Index 20.72 10/16/2024 10:09 AM HOSPITAL CLERK documented in this encounter Consult Notes * [...] affect GAIT: Normal sitting and standing balance. [id number] is independent. Normal gait. ASSESSMENT / PLAN [...] checks to ensure stability. Counseling was provided [id number]. I personally spent over half of a total of 60 minutes in counseling and coordination of care. All questions were answered to the best of my ability. The patient should follow-up with their primary care provider as soon as possible to further workupher fatigue Cosigned by Ashok Acevedo M.D., M.S. at 10/19/2024 3:22 PM HOSPITAL CLERK ITAL CLERK ITAL CLERK Associated attestation - Ashok Acevedo M.D., M.S. - 10/19/2024 3:22 PM HOSPITAL CLERK This is a supervisory note for Dr. [...] Total Score: 1 08/27/20 19 4:12 PM HOSPITAL CLERK documented as of this encounter Care Teams Putty Mixer Relationship Specialty Start Date End Date Magy Dorantes MPAS, P.A.-C. [address] [facility] [phone] PCP - General Internal Medicine 09/18/22 documented as of this encounter
--- OUTSIDE RECORDS SUMMARY | 2024-10-27 11:35 | XMS_ITS | Encounter Summary ---
Author Organization [facility] Address [address] [place] [address] Care Team Providers Care Heat Transfer Technician Name Role Phone Magy Dorantes P.AC[facility] Primary [facility] Pro vider Reason for Referral * Outpatient (Routine) - Authorized Specialty Diagnoses / Procedures Referred By Miguelito dominguez Referred To Contact Dermatology Diagnoses Rash Magy Dorantes MPAS, P.A.-[facility] [address] [place] [address] Phone: tel: fax: [facility] Referral ID Status Reason Start Date Expiration Date Visits Requested Visits Authorized [id number] Authorized Specialty Services Required 4 03/13/2026 1 1 FILLER Reason for Visit * Reason Onset Date Comments Referral 09/11/2024 Encounter Details Date Type Department Care Team ([facility] st Contact Info) Description 09/11/2024 Clinical Communication Department of Community Internal Medicine in [place], [place] [address] [place] [address] Magy Dorantes MPAS, P.A.-[facility] [address] [place] [phone] Referral Social History Tobacco Use [...] on file Legal Sex Female 1:42 PM ROD FILLER Gender Identity Not on file Sexual Orientation [...] Total Score: 1 08/27/20 19 4:12 PM ROD FILLER documented as of this encounter Care Teams Heat Transfer Technician Relationship Specialty Start Date End Date Magy Dorantes MPAS, P.A.-C. [address] [place] [phone] PCP - General Internal Medicine 09/18/22 documented as of this encounter
--- OUTSIDE RECORDS SUMMARY | 2024-10-27 11:35 | XMS_ITS | Encounter Summary ---
Author Organization [facility] Address [address] [place] [address] Care Team Providers Care Service Dismantler Name Role Phone Magy Dorantes, P.A.-C. Primary Care Pro vider Encounter Details Date Type Department Care Team (Latest Contact Info) Description 10/15/2024 11:11 AM BOARD CERTIFIED FAMILY PHYSICIAN - 10/15/2024 11:59 PM [facility] Hospital Encounter Department of Laboratory Medicine in [place], [place] [address] [place] [phone] Magy Dorantes MPAS, P.A.-C. [address] [place] [phone] Nodule Thyroid Nontoxic Discharge Disposition: Home [...] on file Legal Sex Female 1:42 PM BOARD CERTIFIED FAMILY PHYSICIAN Gender Identity Not on file Sexual Orientation Not on file documented as of this encounter Medications at Time of Discharge ascorbic [id number] (Emergen-C) 1,000 mg powder effervescent in packet [...] 482 mg by mouth daily. Cyndie Tumeric Streetman Extra Strength Proprietary Blend 482 mg capsule. [...] THYROID-STIMULATING HORMONE-SENSITIVE (S-TSH) Routine 10/15/2024 11:23 AM BOARD CERTIFIED FAMILY PHYSICIAN Nodule Thyroid Nontoxic T4 (THYROXINE), FREE, S Routine 10/15/2024 11:23 AM BOARD CERTIFIED FAMILY PHYSICIAN Nodule Thyroid Nontoxic documented in this encounter Results * S-TSH (Thyroid-Stimulating Hormone - Sensitive) (10/15/2024 11:23 AM BOARD CERTIFIED FAMILY PHYSICIAN) TSH, Sensitive 1.4 0.3 - 4.2 mIU/L 10/15/2024 1:46 PM BOARD CERTIFIED FAMILY PHYSICIAN OWAT Blood (Blood, Venous) 10/15/2024 11:23 AM BOARD CERTIFIED FAMILY PHYSICIAN 10/15/2024 12:48 PM BOARD CERTIFIED FAMILY PHYSICIAN Magy CONRAD, P.A.-C. LAB BLOOD ADD-ON Final Result Performing Organization Address [facility] Co de Phone Number [facility] [address] [place] [phone], [facility] [address] [place] [phone] * T4 (Thyroxine), Free (10/15/2024 11:23 AM BOARD CERTIFIED FAMILY PHYSICIAN) T4 (Thyroxine), Free, P 1.3 0.9 - 1.7 ng/dL 10/15/2024 1:46 PM BOARD CERTIFIED FAMILY PHYSICIAN OWAT Blood (Blood, Venous) 10/15/2024 11:23 AM BOARD CERTIFIED FAMILY PHYSICIAN 10/15/2024 12:48 PM BOARD CERTIFIED FAMILY PHYSICIAN us Magy CONRAD, P.A.-C. LAB BLOOD ADD-ON Final Result Performing Organization Address [facility]/ZIP Co de Phone Number [facility] [address] [place] [phone], [facility] [address] [place] [phone] documented in this encounter Visit Diagnoses Diagnosis Nodule Thyroid Nontoxic documented in this encounter Additional Health Concerns Assessment Noted Time PHQ-9 Depression Total Score: 1 08/27/20 19 4:12 PM BOARD CERTIFIED FAMILY PHYSICIAN documented as of this encounter Care Teams Service Dismantler Relationship Specialty Start Date End Date Magy Dorantes MPAS, P.A.-C. [address] [place] [address] [place] [phone] PCP - General Internal Medicine 09/18/22 documented as of this encounter
--- OUTSIDE RECORDS SUMMARY | 2024-10-27 11:35 | XMS_ITS | Encounter Summary ---
Author Organization [facility] Address [address] [place] [address] Care Team Providers Care Nurse Rn Bsn Name Role Phone Magy Dorantes P.A.-C. Primary Care Pro vider Reason for Visit * Reason Onset Date Comments Pre-visit Intake 10/15/2024 * Appointment Request (Routine) - Authorized Specialty Diagnoses / Procedures Referred By Miguelito t Referred To Contact Endocrinology Referral ID Status Reason Start Date Expiration Date V isits Requested Visits Authorized [id number] Authorized 10/13/2024 01/13/2026 1 1 Encounter Details Date Type Department Care Team (Latest Contact Info) Description 10/15/2024 9:15 AM TECHNICAL EDUCATION TEACHER Clinical Communication Virtual Review in [place], [place] [address] [place] [phone] Pre-visit Intake Social History Tobacco Use Types [...] on file Legal Sex Female 1:42 PM TECHNICAL EDUCATION TEACHER Gender Identity Not on file Sexual Orientation Not on file documented as of this encounter Plan of Treatment Not on file documented as of this encounter Visit Diagnoses Not on filedocumented in this encounter Additional Health Concerns Assessment Noted Time PHQ-9 Depression Total Score: 1 08/27/20 19 4:12 PM TECHNICAL EDUCATION TEACHER documented as of this encounter Care Teams Nurse Rn Bsn Relationship Specialty Start Date End Date Magy Dorantes MPAS, P.A.-C. [address] [place], [place] [address] [phone] PCP - General Internal Medicine 09/18/22 documented as of this encounter
--- OUTSIDE RECORDS SUMMARY | 2024-10-27 11:36 | XMS_ITS | Clinical Summary ---
Author Organization [facility] Address [address] [place] [address] Care Team Providers Care Automatic Embroidery Machine Tender Name Role Phone Magy Dorantes P.A.-C. Primary Care Pro vider Source Comments Patient records contain information from all sites at [facility]. For routine questions regarding patient records, call [phone] during business hours, M-F 8:00 AM - 5:00 PM Central Time. Record requests for emergency care only can be directed to [phone] at any time.[facility] Allergies Active Allergy Reactions Criticality Noted Date [...] 482 mg by mouth daily. Cyndie Tumeric [place] Extra Strength Proprietary Blend 482 mg capsule. [...] by mouth daily with breakfast. Active ascorbic rtje-smjihmmp-l in (Emergen-C) 1,000 mg powder effervescent in [...] Abdominal 08/12/2021 1 Overview (08/12/2021): Treated at [facility] on 11/15/20 for diverticulitis. Current symptoms may [...] Department Care Team Description 10/16/2024 10:00 AM MASTER DYER Comprehensive Visit Division of Endocrinology in [place], [place] [address] [place] [address] Magy Dorantes MPAS, P.A.-Enoc Hay M.D. Nodule Thyroid Nontoxic 10/15/2024 11:11 AM MASTER DYER - 10/15/2024 11:59 PM MASTER DYER Hospital Encounter Department of Laboratory Medicine in [address] [phone] Magy Dorantes MPAS, P.A.-C. Nodule Thyroid Nontoxic Discharge Disposition: Home or Self Care 10/15/2024 9:15 AM MASTER DYER Clinical Communication Virtual Review in [address] [address] Pre-visit Intake 09/11/2024 Clinical Communication Department of Community Internal Medicine in [address] [address] Magy Dorantes MPAS, Tereza.A.-C. Referral 08/13/2024 1:25 PM MASTER DYER Ancillary Procedure Department of Family Medicine 08/13/2024 1:00 PM MASTER DYER Office Visit Department of Community Internal Medicine in [address] [address] Magy Dorantes MPAS, Tereza.A.-C. Stroke Cerebrovascular Accident Personal History (Primary Dx); Hyperlipidemia; Nodule Thyroid Nontoxic; Rash 08/06/2024 10:38 AM MASTER DYER - 08/06/2024 11:59 PM MASTER DYER Hospital Encounter Department of Laboratory Medicine in [address] [address] Magy Dorantes MPAS, P.A.-C. Hyperlipidemia; Maintenance Health Adult Discharge Disposition: Home or Self Care 08/06/2024 10:10 AM MASTER DYER - 08/06/2024 10:37 AM MASTER DYER Hospital Encounter Department of Radiology in [address] [address] Magy Dorantes MPAS, P.A.-C. Lymphadenopathy Discharge Disposition: [...] on file Legal Sex Female 1:42 PM MASTER DYER Gender Identity Not on file Sexual Orientation Not on file Last Filed Vital Signs Vital Sign Reading Time Taken Comments Blood Pressure 135/80 10/16/2024 10:09 AM MASTER DYER Patient stated took it at home last night 10/15/24 Pulse 75 08/13/2024 12:48 PM MASTER DYER Temperature 35.8 C (96.4 F) 08/13/2024 12:48 PM MASTER DYER Respiratory Rate 16 08/13/2024 12:4 8 PM MASTER DYER Oxygen Saturation 90% 08/21/2023 3:4 5 PM MASTER DYER Inhaled Oxygen Concentration - - Weight 50.5 kg (111 lb 5.3 oz) 10/16/2024 10:09 AM MASTER DYER Height 156.1 cm (5' 1.46) 10/16/2024 1 0:09 AM MASTER DYER Body Mass Index 20.72 10/16/2024 10:09 AM MASTER DYER Plan of Treatment Health Maintenance Due Date [...] this topic Medical Devices Implanted Type Area Poultry Killer Device Identifier Shelf Expiration Date Model / Serial / Lot Staple-Left Shoulder-1980 Implanted:09/1980 (Quantity not on file) Misc Other Left: Shoulder Procedures Procedure Name Priority Date/Time Associated Diagnosis Comments THYROID-STIMULATI NG HORMONE-SENSITIVE (S-TSH) Routine 10/15/2024 11:23 AM MASTER DYER Nodule Thyroid Nontoxic T4 (THYROXINE), FREE, S Routine 10/15/2024 11:23 AM MASTER DYER Nodule Thyroid Nontoxic FAMILY MEDICINE IMAGE EXAM Routine 08/13/2024 1:25 PM MASTER DYER THYROID FUNCTION CASCADE, S Routine 08/06/2024 10:46 AM MASTER DYER Maintenance Health Adult VITAMIN B12 ASSAY, S Routine 08/06/2024 10:46 AM MASTER DYER Maintenance Health Adult VITAMIN D, IMMUNOASSAY, TOTAL, S Routine 08/06/2024 10:46 AM MASTER DYER Maintenance Health Adult GLUCOSE, FASTING, S/P Routine 08/06/2024 10:46 AM MASTER DYER Maintenance Health Adult BASIC METABOLIC PANEL, S/P Routine 08/06/2024 10:46 AM MASTER DYER Maintenance Health Adult LIPID PANEL, S Routine 08/06/2024 10:46 AM MASTER DYER Hyperlipidemia US HEAD NECK SOFT TISSUE RAD - Routine (most inpatients and all outpatients) 08/06/2024 10:36 AM MASTER DYER Lymphadenopathy from Last 3 Months Results * S-TSH (Thyroid-Stimulating Hormone - Sensitive) (10/15/2024 11:23 AM MASTER DYER) TSH, Sensitive 1.4 0.3 - 4.2 mIU/L 10/15/2024 1:46 PM MASTER DYER OWAT Blood (Blood, Venous) 10/15/2024 11:23 AM MASTER DYER 10/15/2024 12:48 PM MASTER DYER us Magy Dorantes MPAS, P.A.-C. LAB BLOOD ADD-ON Final Result - [facility] [address] [place] [address], [place] OW[place] [facility] [place] [address] [place] [address] * T4 (Thyroxine), Free (10/15/2024 11:23 AM MASTER DYER) T4 (Thyroxine), Free, P 1.3 0.9 - 1.7 ng/dL 10/15/2024 1:46 PM MASTER DYER OWAT Blood (Blood, Venous) 10/15/2024 11:23 AM MASTER DYER 10/15/2024 12:48 PM MASTER DYER us Magy CONRAD, P.A.-C. LAB BLOOD ADD-ON Final Result - [facility] [address] [place] [address], [place] [facility] [place] [address] [place] [address] * Arm-Family Medicine Image Exam (08/13/2024 1:25 PM MASTER DYER) 08/13/2024 1:23 PM MASTER DYER Narrative IIMS - 08/13/2024 1:25 PM MASTER DYER This order has been created and auto-finalized to support the import of images acquired without order. The clinical documentation to support these images can be found on the encounter that produced images. us Provider Not In System IMG NON RAD IMAGING PROCE DURES Final Result IIMS NA * (ABNORMAL) Lipid Panel (08/06/2024 10:46 AM MASTER DYER) Triglycerides 70 mg/dL 08/06/2024 1:21 PM MASTER DYER OWAT Comment: ----REFERENCE VALUE---- Normal: <150 mg/dL Borderline High: 150-199 mg/dL High: 200-499 mg/dL Very High: > or =500 mg/dL Cholesterol, Total 223(H) mg/dL 2023 1:21 PM MASTER DYER OWAT Comment: ----REFERENCE VALUE---- Desirable: < 200 mg/dL Borderline High: 200 - 239 mg/dL High: > or = 240 mg/dL Cholesterol, LDL, Calculated 117 mg/dL 08/06/2024 1:21 PM MASTER DYER OWAT Comment: ----REFERENCE VALUE---- Desirable: <100 mg/dL Above Desirable: 100-129 mg/dL Borderline High: 130-159 mg/dL High: 160-189 mg/dL Very High: >=190 mg/dL ----ADDITIONAL INFORMATION---- LDL cholesterol calculated using the Gardner/NIH equation. Cholesterol, HDL 94 >=50 mg/dL 08/06/20 1:21 PM MASTER DYER OWAT Cholesterol, Non-HDL, Calculated 129 mg/dL 08/06/2024 1:21 PM MASTER DYER OWAT Comment: ----REFERENCE VALUE---- Desirable: <130 mg/dL Above Desirable: 130-159 mg/dL Borderline High: 160-189 mg/dL High: 190-219 mg/dL Very High: > or =220 mg/dL Fasting (8 HR or more) Yes 08/06/2024 10:46 AM MASTER DYER OWAT Blood (Blood, Venous) 08/06/2024 10:46 AM MASTER DYER 08/06/2024 12:47 PM MASTER DYER Magy CONRAD, P.A.-C. LAB BLOOD ADD-ON Final Result Performing Organization Address City/[facility]/ZIP Co de Phone Number [facility] [address] [place] [address], [facility] OWAT [facility] [place] [address] [place] [id number] * Vitamin D, Immunoassay, Total, Serum (08/06/2024 10:46 AM MASTER DYER) Vitamin D, Immunoassay, Total, S 29 20 - 80 ng/mL 08/06/2024 7:44 PM MASTER DYER MKTO Comment: Optimum levels within the healthy population are 20-50, patients with bone disease may benefit from high levels within this range Blood (Blood, Venous) 08/06/2024 10:46 AM MASTER DYER 08/06/2024 7:01 PM MASTER DYER us Magy CONRAD, P.A.-C. LAB BLOOD ADD-ON Final Result Performing Organization Address City/[facility]/ZIP Co de Phone Number [facility] [address] [place] [address], [facility] MKTO [facility] [place] [address] [place] [address] * Thyroid Function [place] (08/06/2024 10:46 AM MASTER DYER) TSH, Sensitive 1.3 0.3 - 4.2 mIU/L 08/06/2024 1:25 PM MASTER DYER OWAT Blood (Blood, Venous) 08/06/2024 10:46 AM MASTER DYER 08/06/2024 12:47 PM MASTER DYER Magy CONRAD, P.A.-C. LAB BLOOD ADD-ON Final Result Performing Organization Address City/[facility]/ZIP Co de Phone Number [facility] [address], [place] [address], [facility] OWAT [facility] [place] [address] [place] [id number] * Glucose, Fasting (08/06/2024 10:46 AM MASTER DYER) Glucose, P 88 70 - 100 mg/dL 08/06/2024 1:39 PM MASTER DYER OWAT Last Intake 12 hr 08/06/2024 12:45 PM MASTER DYER OWAT Blood (Blood, Venous) 08/06/2024 10:46 AM MASTER DYER 08/06/2024 12:45 PM MASTER DYER Magy CONRAD, P.A.-C. LAB BLOOD NON ADD -ON Final Result [facility] [address] [place] [address], [facility] OWAT [facility] [place] [address] [place] [id number] * Vitamin B12 Assay (08/06/2024 10:46 AM MASTER DYER) Vitamin B12 Assay, S 991 232 - 1245 ng/L 08/06/2024 4:21 PM MASTER DYER AUST Comment: Biotin has been identified by the police officer booking as a potential interfering substance. Higher concentrations of biotin may be found in multivitamins, hair/nail supplements, and workout supplements. If the result does not match clinical observations, repeat testing after patient refrains from the use of supplements for at least 12 hours. Blood (Blood, Venous) 08/06/2024 10:46 AM MASTER DYER 08/06/2024 3:29 PM MASTER DYER Magy CONRAD, P.A.-C. LAB BLOOD ADD-ON Final Result - [facility] [address] [place] [address], [facility] - [facility] [address] [place] [address] * Basic Metabolic Panel (08/06/2024 10:46 AM MASTER DYER) Potassium, P 3.7 3.6 - 5.2 mmol/L 08/06/2024 1:21 PM MASTER DYER OWAT Sodium, P 137 135 - 145 mmol/L 08/06/2024 1:21 PM MASTER DYER OWAT Chloride, P 100 98 - 107 mmol/L 08/06/2024 1:21 PM MASTER DYER OWAT Bicarbonate, P 28 22 - 29 mmol/L 08/06/2024 1:21 PM MASTER DYER OWAT Anion Gap, P 9 7 - 15 08/06/2024 1:21 PM MASTER DYER OWAT BUN (Blood Urea Nitrogen), P 17 6 - 21 mg/dL 08/06/2024 1:21 PM MASTER DYER OWAT Creatinine 0.68 0.59 - 1.04 mg/dL 08/06/2024 1:21 PM MASTER DYER OWAT Estimated GFR (eGFR) 86 >=60 mL/min/BSA 08/06/2024 1:21 PM MASTER DYER OWAT Comment: Estimated GFR calculated using the 2020 CKD_EPI creatinine equation. Calcium, Total, P 8.9 8.8 - 10.2 mg/dL 08/06/2024 1:21 PM MASTER DYER OWAT Glucose, P CANCELED mg/dL 08/06/2024 12:48 PM MASTER DYER OWAT Comment: Duplicate test request. Result canceled by the ancillary. Blood (Blood, Venous) 08/06/2024 10:46 AM MASTER DYER 08/06/2024 12:47 PM MASTER DYER us Magy CONRAD P.A.-C. LAB BLOOD ADD-ON Final Result - [facility] [address] [place] [address], [facility] OW[facility] [place] [address] [place] [address] * US Head Neck Soft Tissue (08/06/2024 10:36 AM MASTER DYER) Anatomical Region Laterality Modality Head and Neck, Ultrasound RS T LOS, Ultrasound ARZ LOS, Ultrasound FLA LOS N/A Ultrasound Impressions 08/06/2024 10:49 AM MASTER DYER 1. No definite sonographic correlate for the palpable abnormality on images provided for review. Narrative 08/06/2024 10:49 AM MASTER DYER EXAM: US HEAD NECK SOFT TISSUE COMPARISON: Correlation is performed with ultrasound of the thyroid 07/09/2022; CT the neck soft tissues 07/12/2021. FINDINGS: Real-time grayscale and color Doppler sonographic imaging of the left neck was performed in the region of reported painful palpable abnormality. Apple Packing Header images saved to PACS. Additional images the [...] Correlation is performed with ultrasound of the [id number]/09/2022; CT the neck soft tissues 07/12/2021. FINDINGS: Real-time grayscale and color Doppler sonographic imaging of theleft neck was performed in the region of reported painful palpableabnormality. Apple Packing Header images saved to PACS. Additional images theright [...] Last 3 Months Insurance [address] [place] [address] [employer] Care Teams Automatic Embroidery Machine Tender Relationship Specialty Start Date End Date Magy Dorantes MPAS, PClevelandA.Martin. [address] [place] [phone] PCP - General Internal Medicine 09/18/22
--- OUTSIDE RECORDS SUMMARY | 2024-10-27 11:36 | XMS_ITS | Clinical Summary ---
Author Organization [facility] Address [place], [place] [address] Care Team Providers Care Clinical Data Analyst Name Role Phone Ruth Collins MD Primary [...] on file Legal Sex Female 3:27 PM PERFORMANCE REPORTER Gender Identity Not on file Sexual Orientation [...] Influenza for age 65+ 05/24/2024 Care Teams Clinical Data Analyst Relationship Specialty Start Date End Date Ruth Collins MD PCP - General Preventive Medicine 07/12/21
[2024-10-27 12:35] LABS: Appearance Urine Clear (Clear); Bilirubin Urine 1+ (Negative); Blood Urine Trace-intact (Negative); Color Urine Yellow (Yellow); Glucose Urine Negative (Negative); Ketones Urine Trace (Negative); Leukocyte Esterase Urine Negative (Negative); Nitrite Urine Negative (Negative); Protein Urine 2+ (Negative); Specific Gravity Urine 1.015 (1.000-1.030); Urobilinogen Urine 0.2 (0.2-1.0); pH Urine 7.5 (5.0-8.5)
[2024-10-27 12:36] LABS: Troponin, Point-of-Care* 0.01 ng/ml (0.01-0.04)
[2024-10-27 12:37] LABS: Basophils Absolute Auto 0.06 K/uL (0.00-0.30); Basophils Percent Auto 0.6 % (0.0-3.0); Eosinophils Absolute Auto 0.08 K/uL (0.00-0.50); Eosinophils Percent Auto 0.7 % (0.0-7.0); Hematocrit 41.4 % (33.0-51.0); Hemoglobin* 13.8 gm/dL (12.0-16.0); Immature Granulocytes Abs Auto 0.01 K/uL (0.00-0.30); Immature Granulocytes Pct Auto 0.1 %; Lymphocytes Percent Auto 14.6 % (20-44); Mean Corpuscular HGB Conc 33 gm/dL (32-36); Mean Corpuscular Hemoglobin 30 pg (26-34); Mean Corpuscular Volume 90 fL (80-100); Monocytes Percent Auto 6.2 % (0.0-11.0); Neutrophils Percent Auto 77.8 % (42.0-72.0); Platelet Count* 251 K/uL (140-440); RDW Coefficient of Variation % 12.4 % (11.5-15.5); Red Blood Count 4.59 m/uL (4.00-5.20); White Blood Count* 10.89 K/uL (4.50-11.00)
[2024-10-27 12:42] LABS: RBC Urine 0-2 (0-2); WBC Urine 0-2 (0-5)
[2024-10-27 12:44] LABS: Slide Review Reflex No
[2024-10-27 12:50] LABS: Chloride* 98 mmol/L (96-114); Sodium* 133 mmol/L (135-149)
[2024-10-27 12:51] LABS: Potassium* 3.4 mmol/L (3.6-5.1)
[2024-10-27 12:53] LABS: Anion Gap 7 mEq/L (7-15); Blood Urea Nitrogen* 10 mg/dL (7-30); Carbon Dioxide* 28 mmol/L (20-32); Creatinine* 0.6 mg/dL (0.5-1.5); Estimated Glomerular Filt Rate 89 ml/min
[2024-10-27 12:54] LABS: Calcium* 8.9 mg/dL (8.4-10.6); Glucose* 100 mg/dL (60-115)
[2024-10-27 13:04] LABS: NT Pro B Type NatriureticPept* 193 pg/mL
[2024-10-27 13:07] LABS: Troponin I* < 0.01 ng/mL (0.01-0.04)
[2024-10-27 14:11] VITALS: PULSE 86; RESP 18; O2SAT 97
== END 2024-10-27 14:13 | disposition home or self-care (01) ==
PROVIDERS: Emergency Provider Family Medicine; PCP Internal Medicine
DX: R14.1 Gas pain (principal); K59.00 Constipation, unspecified; R07.89 Other chest pain
CPT/HCPCS: 36415; 71045; 74018; 80048; 81001; 83880; 84484; 85025; 93005; 99284; 99285

== ENCOUNTER 2025-02-28 21:14 | Emergency (ER) | payer OTHER, SELFPAY ==
[2025-02-28 21:25] VITALS: BP 178/105; PULSE 72; RESP 20; TEMP 36.5; O2SAT 95; BMI 19.6
--- NOTE | 2025-02-28 21:25 | CRLHL7_ITS ---
For Patients: As a result of the Cures Act, medical imaging exams and procedure reports are released immediately into your electronic medical record. You may view this report before your referring provider. If you have questions, please contact your health care provider. INDICATION: Twisted ankle and foot TECHNIQUE: Foot three views of the left FINDINGS/IMPRESSION: Normal alignment. No acute fracture or acute osseous abnormalities are visualized. Of hammertoes the 2nd through 4th toes calcaneal spur. Diffuse soft tissue edema Dictated by Pilar Arreguin MD @ 02/28/2025 9:56:45 PM (Electronically Signed)
--- NOTE | 2025-02-28 21:26 | CRLHL7_ITS ---
For Patients: As a result of the Century Cures Act, medical imaging exams and procedure reports are released immediately into your electronic medical record. You may view this report before your referring provider. If you have questions, please contact your health care provider. INDICATION: Twisted ankle and foot TECHNIQUE: Two views of the left ankle FINDINGS/IMPRESSION: There is lateral soft tissue swelling. There is an ossific density adjacent to the fibula this appears fairly well corticated and favored to represent sequela of old trauma rather than acute fracture. Talar dome intact normal alignment. Dictated by Pilar Arreguin MD @ 02/28/2025 9:58:56 PM (Electronically Signed)
--- NOTE | 2025-02-28 21:30 | ED.NURSE ---
pt taken for xray
--- NOTE | 2025-02-28 21:51 | ED_ITS ---
HPI - General Adult General Date Seen: 02/28/25 Chief complaint: Extremity Pain/Injury, Lower Stated complaint: L foot pain Time Seen by Provider: 02/28/25 21:51 History of Present Illness HPI narrative: 84-year-old female presenting to the ER today with pain and swelling affecting her left ankle. She does have a previous ankle fracture 3 years ago. She also has a more recent Achilles tendon injury (couple of months ago) his reports still doing some rehab for that. She was walking in her apartment building today when she tripped and twisted her left ankle. She injured the ankle and noted swelling around the lateral malleolus and also some swelling with a small bump posteriorly at the base of the Achilles tendon. She has been able to bear weight on the ankle since she twisted it. She is worried she may every broken her ankle so she came here to the ER. She is accompanied by her friend from her building. No other injuries from the incident. She did not really fall. She did not hurt her knee or hip. She did not injure her back. She did not hit her head. Related Data Home Medications ?Medication ?Instructions ?Recorded ?Confirmed aspirin 81 mg capsule 81 mg PO DAILY 10/27/2405/17 Allergies Allergy/AdvReac Type Severity Reaction Status Date / Time clindamycin Allergy Severe Verified 02/28/25 21:23 oxycodone Allergy Unknown Verified 02/28/25 21:23 Penicillins Allergy Unknown Verified 02/28/25 21:23 [facility] Medical History Rheumatoid arthritis ?M06.9 - Rheumatoid arthritis, unspecified (ICD-10) Surgical History H/O dilation and curettage ?Z98.890 - Other specified postprocedural states (ICD-10) H/O mastectomy ?Z90.10 - Acquired absence of unspecified breast and nipple (ICD-10) Social History Smoking Status: Never smoker Do you use any of these nicotine containing products: None How often do you have a drink containing alcohol: never AUDIT-C Alcohol total score: 0 Non-prescribed substance use: denies use Exam Narrative: Exam Narrative: Constitutional: Appears well-developed and well-nourished. Active. Non-toxic appearing. Polite. HENT: Head: Atraumatic. No signs of injury. Nose: No nasal discharge. Mouth/Throat: Mucous membranes are moist. Pharynx is normal. Tonsils symmetric. Uvula midline. Airway patent. Eyes: Conjunctivae normal and EOM are normal. Pupils are equal, round, and reactive to light. Right eye exhibits no discharge. Left eye exhibits no discharge. No icterus. Neck: Normal range of motion. Neck supple. No adenopathy. No stridor. Cardiovascular: Normal rate and regular rhythm. Strong DP and PT pulse. Normal distal cap refill. Pulmonary/Chest: Effort normal. No stridor. No respiratory distress. Musculoskeletal: Normal except for her left lower leg and ankle. -normal range of motion. No edema. No tenderness. No deformity. Left lower extremity: Hip, femur/thigh are normal. Knee normal inspection. No tenderness including no tenderness over the proximal fibula and tibia. Lower leg looks normal. Olvera nontender. Gastrocnemius nontender. She is mildly tender over the very distal Achilles and calcaneus with subtle swelling there. There is no palpable Achilles tendon deficit. Strong plantar flexion and dorsiflexion at the ankle. No signs of complete Achilles tendon injury. Inspection of the ankle reveals swelling on the medial malleolus. No bruising or ecchymosis. No redness or warmth. Medial malleolus is nontender. She is mildly tender without crepitus or deformity over the lateral malleolus. Inspection of the foot is normal. Palpation of the midfoot is nontender, including no tenderness over the proximal 5th metatarsal. Forefoot and toes are nontender. Normal toe wiggling. Neurological: Alert. Normal strength. No cranial nerve deficit or sensory deficit. Coordination normal. GCS eye subscore is 4. GCS verbal subscore is 5. GCS motor subscore is 6. Intact distal sensory function including light touch sensation on the medial and lateral foot, sole of foot, dorsal 1st webspace. Skin: Skin is warm. No rash noted. Const: Vital Signs, click to edit/add: Vital Signs - 24 hr 02/28/25 21:25 Temperature 97.7 F Pulse Rate [Pulse Oximeter] 72 Respiratory Rate 20 Blood Pressure [Ri ght Upper Arm] 178/105 H Pulse Oximetry 95 Oxygen Delivery Me thod Room Air Course Vital Signs Vital signs: Initial Vital Signs Temperature 97.7 F 02/28/25 21:25 Temperature Source Temporal Artery Scan 02/28/25 21:25 Pulse Rate 72 02/28/25 21:25 Respiratory Rate 20 02/28/25 21:25 Blood Pressure 178/105 H 02/28/25 21:25 Blood Pressure Mean 129 H 02/28/25 21:25 Pulse Oximetry 95 02/28/25 21:25 Oxygen Delivery Method Room Air 02/28/25 21:25 Vital Signs Temperature 97.7 F 02/28/25 21:25 Pulse Rate 72 02/28/25 21:25 Respiratory Rate 20 02/28/25 21:25 Blood Pressure 178/105 H 02/28/25 21:25 Pulse Oximetry 95 02/28/25 21:25 Oxygen Delivery Method Room Air 02/28/25 21:25 Temperature 97.7 F 02/28/25 21:25 Pulse Rate 72 02/28/25 21:25 Respiratory Rate 20 02/28/25 21:25 Blood Pressure 178/105 H 02/28/25 21:25 Pulse Oximetry 95 02/28/25 21:25 Oxygen Delivery Method Room Air 02/28/25 21:25 Medical Decision Making MDM Narrative Medical decision making narrative: This patient presents for evaluation of left heel/Achilles and left lateral malleolus ankle pain after she twisted her foot tonight while walking.. Signs and symptoms are consistent with an ankle sprain. There are no signs of fracture on radiograph based on my read. Radiology interpretation. The patients neurovascular status is normal. Knee exam is normal. I don't think this is a Maisonneuve injury or a intraosseous ligament injury based on the location of tenderness. Also consider possible Achilles tendon injury since she is having a little bit of posterior pain. A head to toe trauma exam is otherwise negative; the likelihood of other serious sequelae of trauma (spine, head, chest, abdomen, other extremities, pelvis) is low. Plan is for protected weightbearing, RICE treatment with ice 15-20 minutes every 3 hours, and an bracing. Patient will advance mobility and follow-up in 2-4 days. They will begin gentle ROM exercises. Precautions for return reviewed and questions answered. Imaging Data XR left ankle: Attestation: I have reviewed the pertinent imaging results. My impression: No acute fracture. She appears to have an old , corticated , healed distal fibular fracture. Radiologist's impression: FINDINGS/IMPRESSION: There is lateral soft tissue swelling. There is an ossific density adjacent to the fibula this appears fairly well corticated and favored to represent sequela of old trauma rather than acute fracture. Talar dome intact normal alignment. XR left foot: Attestation: I have reviewed the pertinent imaging results. My impression: No acute fracture. Radiologist's impression: FINDINGS/IMPRESSION: Normal alignment. No acute fracture or acute osseous abnormalities are visualized. Of hammertoes the 2nd through 4th toes calcaneal spur. Diffuse soft tissue edema Discharge Plan Discharge Clinical Impression: Ankle sprain Patient Disposition: Home, Self-Care Condition: Stable Instructions: Ankle Sprain (ED) Additional Instructions: Good news, we do not see any sign of freshly broken bones on your x-rays tonight. We suspect your pain is probably due to a sprain of the ligaments on the outside of your left ankle. Please wear the brace on your left ankle whenever your up and around to help protect the ligaments in the ankle an your Achilles for the next couple of days. It is okay to take off the splint while your resting or sleeping in bed. Try to keep her foot elevated when possible to reduce swelling. Use an ice pack or cold pack for 20 minutes at a time every 3-4 hours to help reduce bruising and swelling. If you are having pain you can use Tylenol or ibuprofen as he normally would. If you are not substantially improved within 2-4 days, please follow-up with your doctor or with the [facility]. To schedule an ER follow-up appointment with the orthopedic clinic, you can call [phone] If you have worsening or severe pain, numbness in your foot, pallor or discoloration of your foot, or any other concerns, please return to the ER right away to be rechecked. Prescriptions: No Action aspirin 81 mg capsule 81 mg PO DAILY Follow Up/Referrals: Magy Dorantes PA-C [Primary Care Provider, Family Practice] Stand Alone Forms: [employer] Info Instructions
--- NOTE | 2025-02-28 22:29 | ED.NURSE ---
ankle brace applied
--- OUTSIDE RECORDS SUMMARY | 2025-02-28 22:56 | XMS_ITS | Clinical Summary ---
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
== END 2025-02-28 22:56 | disposition home or self-care (01) ==
LOC: ED 22:55
PROVIDERS: Emergency Provider Emergency Medicine; PCP Internal Medicine
DX: S93.402A Sprain of unspecified ligament of left ankle, initial encounter (principal); X50.1XXA Overexertion from prolonged static or awkward postures, initial encounter
CPT/HCPCS: 29515; 73600; 73630; 99282; 99283